=== PATIENT | male | born 1940 | race Hispanic/Latino ===

== ENCOUNTER 2017-03-11 14:03 | Inpatient (IN) | payer MEDICARE ==
--- NOTE | 2017-03-11 14:19 | ED PDOC ---
Arrival/HPI - General Chief Complaint: Weakness/Neurological Deficit Time Seen by Provider: 03/11/17 14:08 Historian: Patient - History of Present Illness Narrative History of Present Illness (Text): 03/11/17 14:16 76 year old male whose past medical history includes diabetes, hypertension, chronic lung disease, coronary artery disease, and DVT presents to the emergency department with shortness of breath and weakness after walking outside. He states he was walking outside in the heat for about 10 minutes when he began to feel weak and lightheaded. pt reports he felt sob, no longer on coumadin for dvt. Denies any pain, headache, or chest pain. 03/11/17 16:58 Time/Duration: Prior to Arrival Symptom Onset: Sudden Symptom Course: Unchanged Modifying Factors (Text): None Past Medical History - Provider Review Nursing Documentation Reviewed: Yes - Infectious Disease Hx of Infectious Diseases: None - Cardiac Hx Hypertension: Yes - Pulmonary Hx Respiratory Disorders: No - Neurological HX Cerebrovascular Accident: Yes - HEENT Hx HEENT Disorder: (WEARS RX GLASSES) - Renal Hx Renal Disorder: No - Endocrine/Metabolic Hx Diabetes Mellitus Type 1: Yes - Hematological/Oncological Hx Blood Disorders: No - Integumentary Hx Dermatological Disorder: No - Musculoskeletal/Rheumatological Hx Falls: No - Gastrointestinal Hx Gastrointestinal Disorders: Yes Hx Gastroesophageal Reflux: Yes - Genitourinary/Gynecological Hx Genitourinary Disorders: No - Psychiatric Hx Emotional Abuse: No Hx Physical Abuse: No Hx Substance Use: No - Surgical History Hx Cholecystectomy: Yes - Anesthesia Hx Anesthesia Reactions: No Hx Malignant Hyperthermia: No - Suicidal Assessment Feels Threatened In Home Enviroment: No Family/Social History - Physician Review Nursing Documentation Reviewed: Yes Family/Social History: Unknown Family HX Smoking Status: Never Smoked Hx Alcohol Use: No Hx Substance Use: No Allergies/Home Meds Allergies/Adverse Reactions: Allergies No Known Allergies Allergy (Verified 03/20/16 13:29) Home Medications: Home Meds Medication Instructions Recorded Confirmed Glyburide/Metformin HCl 2.5 - 500 mg PO QPM 09/03/13 03/11/17 [Glyburide-Metformin 2.5-500 mg] Omeprazole [Prilosec] 20 mg PO QPM 09/03/13 03/11/17 Simvastatin 40 mg PO QPM 10/08/13 03/11/17 Allopurinol [Zyloprim] 300 mg PO QPM 03/20/16 03/11/17 Aspirin [Ecotrin] 81 mg PO DAILY 03/20/16 03/11/17 Enalapril Maleate [Vasotec] 5 mg PO QPM 03/20/16 03/11/17 Prednisone [Prednisone] 5 mg PO DAILY 03/11/17 03/11/17 Review of Systems - Physician Review All systems were reviewed & negative as marked: Yes - Review of Systems Constitutional: Fatigue Respiratory: SOB Cardiovascular: absent: Chest Pain Gastrointestinal: absent: Abdominal Pain Neurological: Headache, Other (Lightheaded) Physical Exam Vital Signs Reviewed: Yes Vital Signs Temp Pulse Resp BP Pulse Ox 03/11/17 18:00 98.6 F 98 H 18 141/87 96 03/11/17 17:13 95 H 22 140/87 97 03/11/17 14:04 97.7 F 97 H 22 156/79 H 97 Temperature: Afebrile Blood Pressure: Normal Pulse: Regular Respiratory Rate: Normal Appearance: Positive for: Well-Appearing, Non-Toxic, Comfortable Pain Distress: None Mental Status: Positive for: Alert and Oriented X 3 Finger Stick Blood Glucose: 88 - Systems Exam Head: Present: Atraumatic, Normocephalic Pupils: Present: PERRL Extroacular Muscles: Present: EOMI Conjunctiva: Present: Normal Mouth: Present: Moist Mucous Membranes Neck: Present: Normal Range of Motion Respiratory/Chest: Present: Clear to Auscultation, Good Air Exchange. No: Respiratory Distress, Accessory Muscle Use Cardiovascular: Present: Regular Rate and Rhythm, Normal S1, S2. No: Murmurs Abdomen: Present: Normal Bowel Sounds. No: Tenderness, Distention, Peritoneal Signs Back: Present: Normal Inspection Upper Extremity: Present: Normal Inspection. No: Cyanosis, Edema Lower Extremity: Present: Normal Inspection. No: Edema Neurological: Present: GCS=15, CN II-XII Intact, Speech Normal Skin: Present: Warm, Dry, Normal Color. No: Rashes Psychiatric: Present: Alert, Oriented x 3, Normal Insight, Normal Concentration Medical Decision Making ED Course and Treatment: Impression: 76 year old male whose past medical history includes diabetes, hypertension, chronic lung disease, coronary artery disease, and DVT presents to the emergency department with shortness of breath and weakness after walking outside. Differential Diagnosis include but are not limited to: r/o intracrnail, metabolic, infectious, pe, etiology Plan: -- EKG, Chest X-ray -- Labs -- Reassess and disposition Prior Visits: Notes and results from previous visits were reviewed. Patient last seen in ED on 03/20/16 and admitted for DVT. Progress Notes: CT Head Stenographer Print Shop: Micheal Patino MD IMPRESSION: No acute findings. Chest X-ray Stenographer [employer]: Micheal Patino MD IMPRESSION: No active disease 03/11/17 16:58 dimer elevated, v/q added, given elevated cr (baseline). pt hemodynamically stable, o2 sat 97%, stable for tele. dr lee accepts VQ Scan Stenographer [employer] : Max Hoskins MD Report Date : 03/11/2017 16:53:02 FINDINGS: VENTILATION COMPONENT: Normal. PERFUSION COMPONENT: Large perfusion defects right upper lobe. Smaller perfusion defects left upper lobe. IMPRESSION: Highprobability ventilation perfusion scan for pulmonary embolism. - Lab Interpretations Lab Results: 03/11/17 14:20 03/11/17 14:20 Lab Results 03/11/17 14:50: Urine Color Yellow, Urine Appearance Clear, Urine pH 6.0, Ur Specific Thorp 1.020, Urine Protein 30 H, Urine Glucose (UA) Negative, Urine Ketones Negative, Urine Blood Trace-intact H, Urine Nitrate Negative, Urine Bilirubin Negative, Urine Urobilinogen 0.2, Ur Leukocyte Esterase Negative, Urine RBC 0 - 2, Urine WBC Negative, Hyaline Casts 0 - 2 03/11/17 14:20: D-Dimer, Quantitative 6.62 H 03/11/17 14:20: Sodium 143, Potassium 3.7, Chloride 107, Carbon Dioxide 24, Anion Gap 16, BUN 29 H, Creatinine 1.8 H, Est GFR ( Amer) 45, Est GFR ( Non-Af Amer) 37, Random Glucose 83, Calcium 9.4, Magnesium 1.6 L, Total Bilirubin 1.0, AST 55, ALT 64 H, Alkaline Phosphatase 54, Lactate Dehydrogenase 693, Total Creatine Kinase 99, Troponin I 0.01, NT-Pro-B Natriuret Pep 187, Total Protein 6.7, Albumin 4.0, Globulin 2.6, Albumin/Globulin Ratio 1.5 03/11/17 14:20: PT 11.6, INR 1.07, APTT 31.0 H 03/11/17 14:20: WBC 6.1, RBC 3.74, Hgb 12.4 L, Hct 37.0 L, MCV 98.9, MCH 33.2, MCHC 33.5, RDW 14.3, Plt Count 94 L, MPV 10.1, Gran % 59.2, Lymph % (Auto) 25.9 , Phelps % (Auto) 9.4 H, Eos % (Auto) 5.2 H, Baso % (Auto) 0.3, Gran # 3.63, Lymph # 1.6, Phelps # 0.6, Eos # 0.3, Baso # 0.02 03/11/17 14:10: POC Glucose (mg/dL) 88 - RAD Interpretation Radiology Orders: 03/11/17 14:14 CHEST PORTABLE [RAD] Stat 03/11/17 14:53 HEAD W/O CONTRAST [CT] Stat 03/11/17 15:29 LUNG PERF & VENT SCAN [NM] Stat - EKG Interpretation Interpreted by ED Physician: Yes (EKG shows NSR at 96 BPM, no ST/T wave changes) Type: 12 lead EKG - Medication Orders Current Medication Orders: Allopurinol (Zyloprim) 300 mg PO QPM [facility] Aspirin (Ecotrin) 81 mg PO DAILY [facility] Glyburide (Micronase) 2.5 mg PO BRK [facility] Last Admin: 03/12/17 08:53 Dose: 2.5 mg Heparin Sodium/Sodium Chloride (Heparin 16012 Units/250ml 1/2 Normal Saline) 25 ,000 units in 250 mls @ 16.084 mls/hr IV .[id number] PRN; Protocol; 18 UNITS/KG/HR PRN Reason: ADJUST RATE PER PROTOCOL Last Titration: 03/12/17 02:04 Dose: 15 units/kg/hr, 13.404 mls/hr Sodium Chloride (Sodium Chloride 0.9%) 1,000 mls @ 80 mls/hr IV .[id number] [facility] Last Admin: 03/12/17 06:06 Dose: 80 mls/hr Insulin Human Regular (Humulin R Low) 0 units SC ACHS [facility] PRN Reason: Protocol Last Admin: 03/12/17 07:53 Dose: Not Given Non-Admin Reason: Blood Sugar Parameter Lisinopril (Zestril) 5 mg PO DAILY [facility] Pantoprazole Sodium (Protonix Ec Tab) 20 mg PO 0600 [facility] Last Admin: 03/12/17 05:43 Dose: 20 mg Prednisone (Prednisone Tab) 5 mg PO DAILY [facility] Discontinued Medications Heparin Sodium (Porcine) (Heparin) 4,000 units IV ONCE ONE PRN Reason: Protocol Stop: 03/11/17 17:26 Last Admin: 03/11/17 17:37 Dose: 4,000 units - Scribe Statement The provider has reviewed the documentation as recorded by the Alysia Mcbride Provider Scribe Attestation: All medical record entries made by the Alysia were at my direction and personally dictated by me. I have reviewed the chart and agree that the record accurately reflects my personal performance of the history, physical exam, medical decision making, and the department course for this patient. I have also personally directed, reviewed, and agree with the discharge instructions and disposition. Disposition/Present on Arrival - Present on Arrival Any Indicators Present on Arrival: No History of DVT/PE: No History of Uncontrolled Diabetes: No Urinary Catheter: No History of Decub. Ulcer: No History Surgical Site Infection Following: None - Disposition Have Diagnosis and Disposition been Completed?: Yes Diagnosis: Pulmonary embolism Disposition: HOSPITALIZED Disposition Time: 16:59 Patient Problems: Current Active Problems Problem Status Onset Pulmonary embolism Acute Condition: FAIR
[2017-03-11 14:38] LABS: ALB/GLOB RATIO 1.5 (1.1-1.8); CALCIUM 9.4 mg/dL (8.4-10.5); MAGNESIUM 1.6 mg/dL (1.7-2.2)
[2017-03-11 14:41] LABS: INR 1.07 (0.93-1.08); PROTHROMBIN TIME 11.6 Seconds (9.9-11.8)
[2017-03-11 14:44] LABS: BASO # 0.02 K/mm3 (0.0-2.0); BASO % 0.3 % (0.0-3.0); EOS # 0.3 (0.0-0.7); EOS % 5.2 % (1.5-5.0); GRAN # 3.63 (1.4-6.5); GRAN % 59.2 % (50.0-68.0); HEMOGLOBIN 12.4 gm/dL (14.0-18.0); LYMPH # 1.6 (1.2-3.4); LYMPH % 25.9 % (22.0-35.0); MEAN CELL VOLUME 98.9 fL (80.0-105.0); MEAN CORPUSCULAR HEMOGLOBIN 33.2 pg (25.0-35.0); MEAN CORPUSCULAR HGB CONC 33.5 g/dl (31.0-37.0); MEAN PLATELET VOLUME 10.1 fl (7.0-11.0); MONO # 0.6 (0.1-0.6); MONO % 9.4 % (1.0-6.0); PLATELET COUNT 94 10^3/uL (120.0-450.0); RBC 3.74 10^6/uL (3.5-6.1); RED CELL DISTRIBUTION WIDTH 14.3 % (11.5-14.5); WHITE BLOOD COUNT 6.1 10^3/ul (4.5-11.0)
[2017-03-11 14:50] LABS: TROPONIN I 0.01 ng/mL
[2017-03-11 15:10] LABS: URINE BILIRUBIN NEGATIVE (NEGATIVE); URINE BLOOD TRACE-INTACT (NEGATIVE); URINE GLUCOSE (UA) NEGATIVE (NEGATIVE); URINE LEUKOCYTE ESTERASE NEGATIVE Leu/uL (NEGATIVE); URINE NITRATE NEGATIVE (NEGATIVE); URINE PROTEIN 30 mg/dL (<30 mg/dL); URINE UROBILINOGEN 0.2 E.U./dL (<1 E.U./dL)
[2017-03-11 15:11] LABS: URINE APPEARANCE CLEAR (CLEAR); URINE COLOR YELLOW (YELLOW)
[2017-03-11 15:13] LABS: URINE HYALINE CAST 0 - 2 /hpf; URINE RBC 0 - 2 /hpf (0-2); URINE WBC NEGATIVE /hpf (0-6)
--- NOTE | 2017-03-11 15:20 | CT ---
PROCEDURE: CT HEAD WITHOUT CONTRAST. HISTORY: near syncope COMPARISON: None available. TECHNIQUE: Axial computed tomography images were obtained through the head/brain without intravenous contrast. Radiation dose: Total exam DLP = 689 mGy-cm. This CT exam was performed using one or more of the following dose reduction techniques: Automated exposure control, adjustment of the mA and/or kV according to patient size, and/or use of iterative reconstruction technique. FINDINGS: HEMORRHAGE: No intracranial hemorrhage. BRAIN: No mass effect or edema. No atrophy or chronic microvascular ischemic changes. VENTRICLES: Unremarkable. No hydrocephalus. CALVARIUM: Unremarkable. PARANASAL SINUSES: There is partial opacification of the ethmoid air cells MASTOID AIR CELLS: Unremarkable as visualized. No inflammatory changes. OTHER FINDINGS: None. IMPRESSION: No acute findings
--- NOTE | 2017-03-11 15:22 | RAD ---
HISTORY: sob/weak COMPARISON: 03/23/2016 FINDINGS: LUNGS: No active pulmonary disease. PLEURA: No significant pleural effusion identified, no pneumothorax apparent. CARDIOVASCULAR: Normal. OSSEOUS STRUCTURES: No significant abnormalities. VISUALIZED UPPER ABDOMEN: Normal. OTHER FINDINGS: None. IMPRESSION: No active disease.
[2017-03-11] MEDS ORDERED: Heparin25000 units/250ml 1/2NS 25,000 UNITS/250 ML BAG IV PRN (16:51)
--- NOTE | 2017-03-11 16:54 | NM ---
COMPARISON: March 11, 2017. TECHNIQUE: 30.0 mCi technetium 99-m DTPA aerosol. 3.6 mCI technetium 99-m MAA administered intravenously. FINDINGS: VENTILATION COMPONENT: Normal. PERFUSION COMPONENT: Large perfusion defects right upper lobe. Smaller perfusion defects left upper lobe. IMPRESSION: Highprobability ventilation perfusion scan for pulmonary embolism. COMMUNICATION OF RESULTS Findings discussed with attending physician in the emergency department at the time of this interpretation. Study completed 16:24. Radiologist notified at 16:47.. Verbal results provided to Dr. Linares 16:52.. Results available in the electronic medical record 16:53 March 11, 2017. .
[2017-03-11 16:58] VITALS: BMI 27.4
[2017-03-11] MEDS: Heparin25000 units/250ml 1/2NS 25,000 UNITS/250 ML BAG IV PRN (17:38)
[2017-03-11] MEDS: Sodium Chloride 0.9% 1,000 ML IV SCH (18:19)
--- NOTE | 2017-03-11 19:58 | CARD ---
APPROVED REPORT EKG Measurement Heart [id number] <Conclusion> Normal sinus rhythm with sinus arrhythmia Inferior-posterior infarct, age undetermined Abnormal ECG
[2017-03-11] MEDS: Insulin Reg-LOW-Coverage SC SCH (21:42)
[2017-03-12] MEDS: Pantoprazole 20 mg EC Tab PO SCH (05:43)
[2017-03-12] MEDS: Sodium Chloride 0.9% 1,000 ML IV SCH ×2 (06:06→20:48)
[2017-03-12 07:36] LABS: BASO # 0.02 K/mm3 (0.0-2.0); BASO % 0.4 % (0.0-3.0); EOS # 0.5 (0.0-0.7); EOS % 8.5 % (1.5-5.0); GRAN # 3.04 (1.4-6.5); GRAN % 54.7 % (50.0-68.0); HEMOGLOBIN 11.9 gm/dL (14.0-18.0); LYMPH # 1.5 (1.2-3.4); LYMPH % 26.5 % (22.0-35.0); MEAN CELL VOLUME 99.5 fL (80.0-105.0); MEAN CORPUSCULAR HEMOGLOBIN 32.5 pg (25.0-35.0); MEAN CORPUSCULAR HGB CONC 32.7 g/dl (31.0-37.0); MEAN PLATELET VOLUME 10.4 fl (7.0-11.0); MONO # 0.6 (0.1-0.6); MONO % 9.9 % (1.0-6.0); PLATELET COUNT 82 10^3/uL (120.0-450.0); RBC 3.66 10^6/uL (3.5-6.1); RED CELL DISTRIBUTION WIDTH 14.5 % (11.5-14.5); WHITE BLOOD COUNT 5.6 10^3/ul (4.5-11.0)
[2017-03-12 07:48] LABS: ALB/GLOB RATIO 1.4 (1.1-1.8); ALBUMIN 3.5 g/dL (3.0-4.8); CALCIUM 8.7 mg/dL (8.4-10.5)
[2017-03-12] MEDS: Insulin Reg-LOW-Coverage SC SCH ×4 (07:53→22:06)
--- NOTE | 2017-03-12 08:11 | CP.PCM.PN ---
Subjective - Date & Time of Evaluation Date of Evaluation: 03/12/17 Time of Evaluation: 07:45 - Subjective Subjective: Patient seen this morning. He says he feels better. Objective - Vital Signs/Intake and Output Vital Signs (last 24 hours): Temp Pulse Resp BP Pulse Ox 97.8 F 68 20 115/72 98 03/12/17 05:51 03/12/17 05:51 03/12/17 05:51 03/12/17 05:51 03/12/17 05:51 Intake and Output: 03/12/17 03/12/17 06:59 18:59 Intake Total 800 Output Total 575 Balance 225 - Medications Medications: Current Medications Allopurinol (Zyloprim) 300 mg PO QPM [facility] Aspirin (Ecotrin) 81 mg PO DAILY [facility] Glyburide (Micronase) 2.5 mg PO BRK [facility] Heparin Sodium/Sodium Chloride (Heparin 48056 Units/250ml 1/2 Normal Saline) 25 ,000 units in 250 mls @ 16.084 mls/hr IV .[id number] PRN; Protocol; 18 UNITS/KG/HR PRN Reason: ADJUST RATE PER PROTOCOL Last Titration: 03/12/17 02:04 Dose: 15 units/kg/hr, 13.404 mls/hr Sodium Chloride (Sodium Chloride 0.9%) 1,000 mls @ 80 mls/hr IV .[id number] [facility] Last Admin: 03/12/17 06:06 Dose: 80 mls/hr Insulin Human Regular (Humulin R Low) 0 units SC ACHS [facility] PRN Reason: Protocol Last Admin: 03/12/17 07:53 Dose: Not Given Lisinopril (Zestril) 5 mg PO DAILY [facility] Pantoprazole Sodium (Protonix Ec Tab) 20 mg PO 0600 [facility] Last Admin: 03/12/17 05:43 Dose: 20 mg Prednisone (Prednisone Tab) 5 mg PO DAILY [facility] - Labs Labs: 03/12/17 07:30 PT 11.6 Seconds (9.9-11.8) 03/11/17 14:20 INR 1.07 (0.93-1.08) 03/11/17 14:20 APTT 99.8 Seconds (23.7-30.8) H* 03/12/17 00:20 - Constitutional Appears: No Acute Distress - Head Exam Head Exam: ATRAUMATIC, NORMOCEPHALIC - Respiratory Exam Respiratory Exam: Clear to Ausculation Bilateral, NORMAL BREATHING PATTERN - Cardiovascular Exam Cardiovascular Exam: +S1, +S2 - GI/Abdominal Exam GI & Abdominal Exam: Soft, Normal Bowel Sounds. absent: Tenderness - Neurological Exam Neurological Exam: Alert, Awake, Oriented x3 Assessment and Plan - Assessment and Plan (Free Text) Assessment: PE HTN HLP DMII Interstitial Lung disease H/O DVT H/O left endarterectomy Plan: Patient is currently on heparin drip. Will start coumadin. Pulmonary consult pending continue IVFs; creatinine 1.7; decreased from 1.8 check carotid doppler
[2017-03-13] MEDS: Pantoprazole 20 mg EC Tab PO SCH (05:20)
[2017-03-13 07:21] LABS: CALCIUM 8.6 mg/dL (8.4-10.5)
[2017-03-13] MEDS: Insulin Reg-LOW-Coverage SC SCH ×4 (08:07→21:12)
--- NOTE | 2017-03-13 09:07 | CP.PCM.PN ---
Subjective - Date & Time of Evaluation Date of Evaluation: 03/13/17 Time of Evaluation: 08:45 - Subjective Subjective: Patient is seen this morning. He has no complaints. Platelets decreased from 94 to 82. Objective - Vital Signs/Intake and Output Vital Signs (last 24 hours): Temp Pulse Resp BP Pulse Ox 97.8 F 70 20 126/66 96 03/13/17 05:38 03/13/17 05:38 03/13/17 05:38 03/13/17 05:38 03/13/17 05:38 Intake and Output: 03/13/17 03/13/17 06:59 18:59 Intake Total 1601 Output Total 525 Balance 1076 - Medications Medications: Current Medications Allopurinol (Zyloprim) 300 mg PO QPM [facility] Aspirin (Ecotrin) 81 mg PO DAILY [facility] Last Admin: 03/12/17 10:59 Dose: 81 mg Glyburide (Micronase) 2.5 mg PO BRK [facility] Last Admin: 03/13/17 08:35 Dose: 2.5 mg Heparin Sodium/Sodium Chloride (Heparin 73312 Units/250ml 1/2 Normal Saline) 25 ,000 units in 250 mls @ 16.084 mls/hr IV .[id number] PRN; Protocol; 18 UNITS/KG/HR PRN Reason: ADJUST RATE PER PROTOCOL Last Titration: 03/12/17 02:04 Dose: 15 units/kg/hr, 13.404 mls/hr Sodium Chloride (Sodium Chloride 0.9%) 1,000 mls @ 80 mls/hr IV .[id number] [facility] Last Admin: 03/12/17 20:48 Dose: 80 mls/hr Insulin Human Regular (Humulin R Low) 0 units SC ACHS [facility] PRN Reason: Protocol Last Admin: 03/13/17 08:07 Dose: Not Given Lisinopril (Zestril) 5 mg PO DAILY [facility] Last Admin: 03/12/17 11:08 Dose: 5 mg Pantoprazole Sodium (Protonix Ec Tab) 20 mg PO 0600 [facility] Last Admin: 03/13/17 05:20 Dose: Not Given Prednisone (Prednisone Tab) 5 mg PO DAILY [facility] Last Admin: 03/12/17 10:59 Dose: 5 mg - Labs Labs: 03/12/17 07:30 03/13/17 06:30 PT 11.6 Seconds (9.9-11.8) 03/11/17 14:20 INR 1.07 (0.93-1.08) 03/11/17 14:20 APTT 65.2 Seconds (23.7-30.8) H 03/13/17 06:30 - Constitutional Appears: No Acute Distress - Head Exam Head Exam: ATRAUMATIC, NORMOCEPHALIC - Respiratory Exam Respiratory Exam: Clear to Ausculation Bilateral, NORMAL BREATHING PATTERN - Cardiovascular Exam Cardiovascular Exam: +S1, +S2 - GI/Abdominal Exam GI & Abdominal Exam: Soft, Normal Bowel Sounds. absent: Tenderness - Neurological Exam Neurological Exam: Alert, Awake, Oriented x3 Assessment and Plan - Assessment and Plan (Free Text) Assessment: DVT/PE HTN DMII H/O DVT H/O left carotid endarterectomy Interstitial lung disease Plan: Patient is currently on heparin drip for DVT and PE treatment. Will start coumadin tonight. Platelets dropped from [address] Miranda, front office director, has been consulted. continue IVFs, creatinine decreased to 1.5 Patient is currently off metformin due to renal insufficiency. continue IVFs. continue glyburide and accuchecks with SS coverage awaiting results of carotid and lower extremity doppler check echocardiogram
[2017-03-13 09:48] LABS: BASO # 0.03 K/mm3 (0.0-2.0); BASO % 0.5 % (0.0-3.0); EOS # 0.4 (0.0-0.7); GRAN # 4.07 (1.4-6.5); GRAN % 61.5 % (50.0-68.0); HEMOGLOBIN 12.1 gm/dL (14.0-18.0); LYMPH # 1.5 (1.2-3.4); LYMPH % 22.8 % (22.0-35.0); MEAN CELL VOLUME 100.3 fL (80.0-105.0); MEAN CORPUSCULAR HEMOGLOBIN 32.8 pg (25.0-35.0); MEAN CORPUSCULAR HGB CONC 32.7 g/dl (31.0-37.0); MEAN PLATELET VOLUME 10.8 fl (7.0-11.0); MONO # 0.6 (0.1-0.6); MONO % 9.2 % (1.0-6.0); PLATELET COUNT 84 10^3/uL (120.0-450.0); RBC 3.69 10^6/uL (3.5-6.1); RED CELL DISTRIBUTION WIDTH 14.7 % (11.5-14.5); WHITE BLOOD COUNT 6.6 10^3/ul (4.5-11.0)
--- NOTE | 2017-03-13 10:20 | US ---
HISTORY: Leg pain and swelling. Evaluate for DVT PHYSICIAN(S): Kyler Narayan MD. TECHNIQUE: Duplex sonography and color-flow Doppler with graded compression were used to evaluate the deep venous systems of both lower extremities. The exam is limited by edema. FINDINGS: Acute occlusive thrombus is noted in the left femoral vein. Interestingly, the left popliteal vein is patent. The left common femoral vein is patent and compressible. There is no sonographic evidence for deep venous thrombosis in the visualized segments of the right lower extremity. IMPRESSION: Acute occlusive left femoral vein DVT
--- NOTE | 2017-03-13 10:23 | US ---
PROCEDURE: Bilateral carotid artery duplex ultrasound HISTORY: Carotid stenosis PHYSICIAN(S): Kyler Narayan MD. TECHNIQUE: Duplex sonography and color-flow Doppler were used to evaluate the carotid bifurcations and limited segments of the vertebral arteries bilaterally. FINDINGS: The exam is limited by body habitus and tortuous vessels. There is mild to moderate smooth heterogeneous plaque noted at the carotid bifurcations bilaterally. The peak systolic velocity in the proximal right internal carotid artery is 134 cm/sec. This corresponds to a 40-59 percent proximal right ICA stenosis. Normal systolic velocities are noted in the proximal right external carotid artery. There is antegrade flow in the right vertebral artery. The peak systolic velocity in the proximal left internal carotid artery is 65 cm/sec. This corresponds to a 20 to 39% proximal left ICA stenosis. Normal systolic velocities are noted in the proximal left external carotid artery. There is antegrade flow in the left vertebral artery. IMPRESSION: 1. 40-59 percent proximal right ICA stenosis. 2. 20-39 percent proximal left ICA stenosis. 3. Antegrade flow in both vertebral arteries.
[2017-03-13] MEDS: Heparin25000 units/250ml 1/2NS 25,000 UNITS/250 ML BAG IV PRN (12:01)
[2017-03-13] MEDS: Sodium Chloride 0.9% 1,000 ML IV SCH ×2 (12:36→20:31)
--- NOTE | 2017-03-14 00:20 | CP.PCM.CON ---
History of Present Illness - History of Present Illness History of Present Illness: Mr. Hopkins is a 76 year old male admitted with sudden shortness of breath. He had some shortness of breath for past few weeks. he had DVT in right leg last year. He was on coumadin for 6 months last year. VQ scan showed large right upper lobe and left upper lobe perfusion defect. He has occlusive left femoral DVT. he is on heparin drip. Thrombocytopenia with platelet count 94 k declined to 84 k now. Review of Systems - Constitutional Constitutional: Malaise, Weakness - EENT Eyes: absent: As Per HPI, Blind Spots, Blurred Vision, Change in Vision, Decreased Night Vision, Diplopia, Discharge, Dry Eye, Exophthalmos, Floaters, Irritation, Itchy Eyes, Loss of Peripheral Vision, Pain, Photophobia, Requires Corrective Lenses, Sees Flashes, Spots in Vision, Tunnel Vision, Other Visual Disturbances, Loss of Vision, Other Ears: absent: As Per HPI, Decreased Hearing, Ear Discharge, Ear Pain, Tinnitus, Abnormal Hearing, Disequilibrium, Dizziness, Other Nose/Mouth/Throat: absent: As Per HPI, Epistaxis, Nasal Congestion, Nasal Discharge, Nasal Obstruction, Nasal Trauma, Nose Pain, Post Nasal Drip, Sinus Pain, Sinus Pressure, Bleeding Gums, Change in Voice, Dental Pain, Dry Mouth, Dysphagia, Halitosis, Hoarsness, Lip Swelling, Mouth Lesions, Mouth Pain, Odynophagia, Sore Throat, Throat Swelling, Tongue Swelling, Facial Pain, Neck Pain, Neck Mass, Other - Cardiovascular Cardiovascular: absent: As Per HPI, Acrocyanosis, Chest Pain, Chest Pain at Rest , Chest Pain with Activity, Claudication, Diaphoresis, Dyspnea, Dyspnea on Exertion, Edema, Irregular Heart Rhythm, Pain Radiating to Arm/Neck/Jaw, Leg Edema, Leg Ulcers, Lightheadedness, Orthopnea, Palpitations, Paroxysmal Nocturnal Dyspnea, Pedal Edema, Radiating Pain, Rapid Heart Rate, Slow Heart Rate, Syncope, Other - Respiratory Respiratory: Dyspnea on Exertion - Gastrointestinal Gastrointestinal: absent: As Per HPI, Abdominal Pain, Belching, Bloating, Change in Bowel Habits, Change in Stool Character, Coffee Ground Emesis, Constipation, Cramping, Diarrhea, Dyspepsia, Dysphagia, Early Satiety, Excessive Flatus, Fecal Incontinence, Heartburn, Hematemesis, Hematochezia, Loose Stools, Melena, Nausea, Odynophagia, Temesmus, Vomiting, Other - Genitourinary Genitourinary: absent: As Per HPI, Change in Urinary Stream, Difficulty Urinating, Dysuria, Flank Pain, Hematuria, Pyuria, Nocturia, Urinary Incontinence, Urinary Frequency, Urinary Hesitance, Urinary Urgency, Voiding Freq/Small Amts, Freq UTI, Hx Renal/Bladder Calculi, Hx /Renal Surgery, Bladder Distension, Other - Musculoskeletal Musculoskeletal: Muscle Weakness - Integumentary Integumentary: absent: As Per HPI, Acne, Alopecia, Bleeding Lesions, Change in Hair, Change in Nails, Change in Pigmentation, Changing Lesions, Dry Skin, Erythema, Furuncle, Hirsutism, Lesions, New Lesions, Non-Healing Lesions, Photosensitivity, Pruritus, Rash, Skin Pain, Skin Ulcer, Sores, Striae, Swelling , Unusual Bruising, Wounds, Jaundice, Other - Neurological Neurological: absent: As Per HPI, Abnormal Gait, Abnormal Hearing, Abnormal Movements, Abnormal Speech, Behavioral Changes, Burning Sensations, Confusion, Convulsions, Disequilibrium, Dizziness, Numbness, Focal Weakness, Frequent Falls , Headaches, Lack of Coordination, Loss of Vision, Memory Loss, Paresthesias, Radicular Pain, Restless Legs, Sensory Deficit, Syncope, Tingling, Tremor, Vertigo, Weakness, Other Visual Disturbances, Other - Psychiatric Psychiatric: absent: As Per HPI, Abnormal Sleep Pattern, Anhedonia, Anxiety, Auditory Hallucinations, Behavioral Changes, Change in Appetite, Change in Libido, Confusion, Depression, Difficulty Concentrating, Hallucinations, Homicidal Ideation, Hopelessness, Irritability, Memory Loss, Mood Swings, Panic Attacks, Paranoia, Suicidal Ideation, Visual Hallucinations, Tactile Hallucinations, Other - Endocrine Endocrine: absent: As Per HPI, Change in Body Appearance, Change in Libido, Cold Intolorance, Deepening of Voice, Excessive Sweating, Fatigue, Flushing, Heat Intolorance, Increase in Ring/Shoe/Hat Size, Palpitations, Polydipsia, Polyphagia, Polyuria, Other - Hematologic/Lymphatic Hematologic: As Per HPI Past Patient History - Infectious Disease Hx of Infectious Diseases: None - Past Medical History & Family History Past Medical History?: Yes Past Family History: Reviewed and not pertinent - Past Social History Smoking Status: Never Smoked - CARDIAC Hx Hypertension: Yes - PULMONARY Hx Respiratory Disorders: No - NEUROLOGICAL HX Cerebrovascular Accident: Yes - HEENT Hx HEENT Problems: (WEARS RX GLASSES) - RENAL Hx Chronic Kidney Disease: No - ENDOCRINE/METABOLIC Hx Diabetes Mellitus Type 1: Yes - HEMATOLOGICAL/ONCOLOGICAL Hx Blood Disorders: No - INTEGUMENTARY Hx Dermatological Problems: No - MUSCULOSKELETAL/RHEUMATOLOGICAL Hx Falls: No - GASTROINTESTINAL Hx Gastrointestinal Disorders: Yes Hx Gastroesophageal Reflux: Yes - GENITOURINARY/GYNECOLOGICAL Hx Genitourinary Disorders: No - PSYCHIATRIC Hx Emotional Abuse: No Hx Physical Abuse: No Hx Substance Use: No - SURGICAL HISTORY Hx Cholecystectomy: Yes - ANESTHESIA Hx Anesthesia Reactions: No Hx Malignant Hyperthermia: No Meds Allergies/Adverse Reactions: Allergies Allergy/AdvReac Type Severity Reaction Status Date / Time No Known Allergies Allergy Verified 03/20/16 13:29 - Medications Medications: Current Medications Allopurinol (Zyloprim) 300 mg PO QPM [facility] Last Admin: 03/13/17 17:28 Dose: 300 mg Aspirin (Ecotrin) 81 mg PO DAILY [facility] Last Admin: 03/13/17 09:40 Dose: 81 mg Glyburide (Micronase) 2.5 mg PO BRK [facility] Last Admin: 03/13/17 08:35 Dose: 2.5 mg Heparin Sodium/Sodium Chloride (Heparin 30596 Units/250ml 1/2 Normal Saline) 25 ,000 units in 250 mls @ 16.084 mls/hr IV .[id number] PRN; Protocol; 18 UNITS/KG/HR PRN Reason: ADJUST RATE PER PROTOCOL Last Admin: 03/13/17 12:01 Dose: 15 units/kg/hr, 13.404 mls/hr Sodium Chloride (Sodium Chloride 0.9%) 1,000 mls @ 80 mls/hr IV .[id number] [facility] Last Admin: 03/13/17 20:31 Dose: 80 mls/hr Insulin Human Regular (Humulin R Low) 0 units SC ACHS [facility] PRN Reason: Protocol Last Admin: 03/13/17 21:12 Dose: Not Given Lisinopril (Zestril) 5 mg PO DAILY [facility] Last Admin: 03/13/17 09:41 Dose: 5 mg Pantoprazole Sodium (Protonix Ec Tab) 20 mg PO 0600 [facility] Last Admin: 03/13/17 05:20 Dose: Not Given Prednisone (Prednisone Tab) 5 mg PO DAILY [facility] Last Admin: 03/13/17 09:40 Dose: 5 mg Warfarin Sodium (Coumadin) 7.5 mg PO 1800 [facility] PRN Reason: Protocol Last Admin: 03/13/17 17:28 Dose: 7.5 mg Physical Exam - Constitutional Appears: Chronically Ill - Head Exam Head Exam: ATRAUMATIC, NORMAL INSPECTION, NORMOCEPHALIC - Eye Exam Eye Exam: absent: Conjunctival injection, EOMI, Normal appearance, Nystagmus, Periorbital swelling, Periorbital tenderness, PERRL, Scleral icterus Pupil Exam: absent: Fixed, Irregular, Miosis, Mydriatic, NORMAL ACCOMODATION, PERRL, Unequal - ENT Exam ENT Exam: absent: Mucous Membranes Dry, Mucous Membranes Moist, Normal Exam, Normal External Ear Exam, Normal Oropharynx, TM's Normal Bilaterally - Neck Exam Neck exam: Negative for: Full Rom, Lymphadenopathy, Meningismus, Normal Inspection, Tenderness, Thyromegaly - Respiratory Exam Respiratory Exam: Clear to Auscultation Bilateral, NORMAL BREATHING PATTERN - Cardiovascular Exam Cardiovascular Exam: REGULAR RHYTHM, +S1, +S2 - GI/Abdominal Exam GI & Abdominal Exam: Normal Bowel Sounds, Soft - Extremities Exam Extremities exam: Positive for: calf tenderness - Back Exam Back exam: NORMAL INSPECTION - Psychiatric Exam Psychiatric exam: Normal Affect, Normal Mood - Skin Skin Exam: Dry, Intact, Normal Color, Warm Results - Vital Signs Recent Vital Signs: Last Vital Signs Temp 98 F 03/13/17 18:00 Pulse 68 03/13/17 22:00 Resp 18 03/13/17 18:00 BP 147/82 03/13/17 18:00 Pulse Ox 96 03/13/17 05:38 - Labs Result Diagrams: 03/13/17 09:30 03/13/17 06:30 Labs: Laboratory Results - last 24 hr 03/13/17 03/13/17 03/13/17 06:30 06:30 07:27 WBC RBC Hgb Hct MCV MCH MCHC RDW Plt Count MPV Gran % Lymph % (Auto) Stone % (Auto) Eos % (Auto) Baso % (Auto) Gran # Lymph # Stone # Eos # Baso # APTT 65.2 H Sodium 140 Potassium 4.4 Chloride 109 H Carbon Dioxide 23 Anion Gap 12 BUN 23 H Creatinine 1.5 H Est GFR ( Amer) 55 Est GFR (Non-Af Amer) 46 POC Glucose (mg/dL) 105 Random Glucose 101 Calcium 8.6 03/13/17 03/13/17 03/13/17 09:30 11:51 20:50 WBC 6.6 RBC 3.69 Hgb 12.1 L Hct 37.0 L MCV 100.3 MCH 32.8 MCHC 32.7 RDW 14.7 H Plt Count 84 L MPV 10.8 Gran % 61.5 Lymph % (Auto) 22.8 Stone % (Auto) 9.2 H Eos % (Auto) 6.0 H Baso % (Auto) 0.5 Gran # 4.07 Lymph # 1.5 Stone # 0.6 Eos # 0.4 Baso # 0.03 APTT Sodium Potassium Chloride Carbon Dioxide Anion Gap BUN Creatinine Est GFR ( Amer) Est GFR (Non-Af Amer) POC Glucose (mg/dL) 149 H 148 H Random Glucose Calcium Assessment & Plan - Assessment and Plan (Free Text) Assessment: 1. B/L PE 2. left femoral DVT 3. Hypercoaguable state 4. Anemia 4. CV 5. Thrombocytopenia 6. CKD III Plan : He is on heparin drip with therapeutic PTT. Coumadin to be started today. To continue heparin drip until INR therapeutic. 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 Thrombophilia work up will be done in office. 2. Anemia : work up ordered- CBC, B12, iron studies. 3. Thrmobocytopenia : unlikely RUT. Will continue to monitor blood counts. If platelet count continue to decline, will consider switching to argatroban. 4. CV : hemodynamically stable. ECho to evaluate right heart pressures. 5. CKD : stable. Thank you Dr. Bradley for allowing us to participate in his care.
[2017-03-14] MEDS: Heparin25000 units/250ml 1/2NS 25,000 UNITS/250 ML BAG IV PRN ×2 (04:10→22:00)
[2017-03-14] MEDS: Pantoprazole 20 mg EC Tab PO SCH (05:16)
[2017-03-14 07:50] LABS: BASO # 0.02 K/mm3 (0.0-2.0); BASO % 0.3 % (0.0-3.0); EOS # 0.4 (0.0-0.7); EOS % 6.3 % (1.5-5.0); GRAN # 3.71 (1.4-6.5); GRAN % 60.4 % (50.0-68.0); HEMOGLOBIN 11.9 gm/dL (14.0-18.0); LYMPH # 1.4 (1.2-3.4); LYMPH % 22.9 % (22.0-35.0); MEAN CELL VOLUME 100.3 fL (80.0-105.0); MEAN CORPUSCULAR HEMOGLOBIN 32.6 pg (25.0-35.0); MEAN CORPUSCULAR HGB CONC 32.5 g/dl (31.0-37.0); MEAN PLATELET VOLUME 10.2 fl (7.0-11.0); MONO # 0.6 (0.1-0.6); MONO % 10.1 % (1.0-6.0); PLATELET COUNT 84 10^3/uL (120.0-450.0); RBC 3.65 10^6/uL (3.5-6.1); RED CELL DISTRIBUTION WIDTH 14.7 % (11.5-14.5); WHITE BLOOD COUNT 6.2 10^3/ul (4.5-11.0)
[2017-03-14 07:53] LABS: INR 1.13 (0.93-1.08); PROTHROMBIN TIME 12.2 Seconds (9.9-11.8)
[2017-03-14] MEDS: Insulin Reg-LOW-Coverage SC SCH ×4 (07:55→21:11)
--- NOTE | 2017-03-14 08:08 | CP.PCM.PN ---
Subjective - Date & Time of Evaluation Date of Evaluation: 03/14/17 Time of Evaluation: 07:45 - Subjective Subjective: Patient doing well. No new complaints. INR subtherapeutic. Objective - Vital Signs/Intake and Output Vital Signs (last 24 hours): Temp Pulse Resp BP Pulse Ox 97.8 F 63 20 142/76 95 03/14/17 06:00 03/14/17 06:00 03/14/17 06:00 03/14/17 06:00 03/14/17 06:00 Intake and Output: 03/14/17 03/14/17 06:59 18:59 Intake Total 1600 Output Total 1950 Balance -350 - Medications Medications: Current Medications Allopurinol (Zyloprim) 300 mg PO QPM [facility] Last Admin: 03/13/17 17:28 Dose: 300 mg Aspirin (Ecotrin) 81 mg PO DAILY [facility] Last Admin: 03/13/17 09:40 Dose: 81 mg Glyburide (Micronase) 2.5 mg PO BRK [facility] Last Admin: 03/13/17 08:35 Dose: 2.5 mg Heparin Sodium/Sodium Chloride (Heparin 78463 Units/250ml 1/2 Normal Saline) 25 ,000 units in 250 mls @ 16.084 mls/hr IV .[id number] PRN; Protocol; 18 UNITS/KG/HR PRN Reason: ADJUST RATE PER PROTOCOL Last Admin: 03/14/17 04:10 Dose: 15 units/kg/hr, 13.404 mls/hr Sodium Chloride (Sodium Chloride 0.9%) 1,000 mls @ 80 mls/hr IV .[id number] [facility] Last Admin: 03/13/17 20:31 Dose: 80 mls/hr Insulin Human Regular (Humulin R Low) 0 units SC ACHS [facility] PRN Reason: Protocol Last Admin: 03/13/17 21:12 Dose: Not Given Lisinopril (Zestril) 5 mg PO DAILY [facility] Last Admin: 03/13/17 09:41 Dose: 5 mg Pantoprazole Sodium (Protonix Ec Tab) 20 mg PO 0600 [facility] Last Admin: 03/14/17 05:16 Dose: Not Given Prednisone (Prednisone Tab) 5 mg PO DAILY [facility] Last Admin: 03/13/17 09:40 Dose: 5 mg Warfarin Sodium (Coumadin) 7.5 mg PO 1800 [facility] PRN Reason: Protocol Last Admin: 03/13/17 17:28 Dose: 7.5 mg - Labs Labs: 03/14/17 07:41 03/13/17 06:30 PT 12.2 Seconds (9.9-11.8) H 03/14/17 07:41 INR 1.13 (0.93-1.08) H 03/14/17 07:41 APTT 65.2 Seconds (23.7-30.8) H 03/13/17 06:30 - Constitutional Appears: No Acute Distress - Head Exam Head Exam: ATRAUMATIC, NORMOCEPHALIC - Respiratory Exam Respiratory Exam: Clear to Ausculation Bilateral, NORMAL BREATHING PATTERN - Cardiovascular Exam Cardiovascular Exam: +S1, +S2 - GI/Abdominal Exam GI & Abdominal Exam: Soft, Normal Bowel Sounds. absent: Tenderness - Neurological Exam Neurological Exam: Alert, Awake, Oriented x3 Assessment and Plan - Assessment and Plan (Free Text) Assessment: Pulmonary Embolism Left LE DVT Interstitial lung disease H/O Left carotid endarterectomy DMII Plan: Patient currently on Heparin drip and coumadin. INR subtherapeutic. Platelet count dropped but now stable at 84. Hematology consult appreciated. continue Heparin drip and coumadin will continue IVFs. Carotid doppler read. no further intervention necessary. Echocardiogram pending. TRCU evaluation
--- NOTE | 2017-03-14 08:10 | CP.PCM.HP ---
History of Present Illness - History of Present Illness History of Present Illness: 76 year old male with history of hypertension, hyperlipidemia, interstitial lung disease, DMII and previous history of DVT of the leg presented to the ER after almost passing out outside. Patient denies SOB, chest pain, nausea or vomiting. He says he was outside in the heat talking to a neighbor, when he walked back to his car, he felt like he was going to pass out. Patient's D-dimer and V/Q scan done in ER found to be abnormal. Present on Admission - Present on Admission Any Indicators Present on Admission: Yes History of DVT/PE: Yes Review of Systems - Cardiovascular Cardiovascular: absent: Chest Pain, Diaphoresis, Dyspnea - Respiratory Respiratory: absent: Cough, Dyspnea, Wheezing - Gastrointestinal Gastrointestinal: absent: Abdominal Pain, Diarrhea, Vomiting Past Patient History - Infectious Disease Hx of Infectious Diseases: None - Past Social History Smoking Status: Never Smoked - CARDIAC Hx Hypertension: Yes - PULMONARY Hx Respiratory Disorders: No - NEUROLOGICAL HX Cerebrovascular Accident: Yes - HEENT Hx HEENT Problems: (WEARS RX GLASSES) - RENAL Hx Chronic Kidney Disease: No - ENDOCRINE/METABOLIC Hx Diabetes Mellitus Type 1: Yes - HEMATOLOGICAL/ONCOLOGICAL Hx Blood Disorders: No - INTEGUMENTARY Hx Dermatological Problems: No - MUSCULOSKELETAL/RHEUMATOLOGICAL Hx Falls: No - GASTROINTESTINAL Hx Gastrointestinal Disorders: Yes Hx Gastroesophageal Reflux: Yes - GENITOURINARY/GYNECOLOGICAL Hx Genitourinary Disorders: No - PSYCHIATRIC Hx Emotional Abuse: No Hx Physical Abuse: No Hx Substance Use: No - SURGICAL HISTORY Hx Cholecystectomy: Yes - ANESTHESIA Hx Anesthesia Reactions: No Hx Malignant Hyperthermia: No Meds Allergies/Adverse Reactions: Allergies Allergy/AdvReac Type Severity Reaction Status Date / Time No Known Allergies Allergy Verified 03/20/16 13:29 Physical Exam - Constitutional Appears: No Acute Distress - Head Exam Head Exam: ATRAUMATIC, NORMOCEPHALIC - Respiratory Exam Respiratory Exam: NORMAL BREATHING PATTERN - Cardiovascular Exam Cardiovascular Exam: +S1, +S2 - GI/Abdominal Exam GI & Abdominal Exam: Normal Bowel Sounds, Soft - Neurological Exam Neurological exam: Alert, CN II-XII Intact, Oriented x3 Results - Vital Signs Recent Vital Signs: Last Vital Signs Temp 97.8 F 03/12/17 05:51 Pulse 68 03/12/17 05:51 Resp 20 03/12/17 05:51 BP 115/72 03/12/17 05:51 Pulse Ox 98 03/12/17 05:51 - Labs Result Diagrams: 03/11/17 14:20 03/12/17 07:30 Labs: Laboratory Results - last 24 hr 03/11/17 03/12/17 03/12/17 21:29 00:20 07:30 APTT 99.8 H* Sodium 140 Potassium 4.4 Chloride 109 H Carbon Dioxide 23 Anion Gap 12 BUN 27 H Creatinine 1.7 H Est GFR ( Amer) 48 Est GFR (Non-Af Amer) 39 POC Glucose (mg/dL) 104 Random Glucose 111 H Calcium 8.7 Total Bilirubin 1.0 AST 34 ALT 55 Alkaline Phosphatase 53 Total Protein 6.0 Albumin 3.5 Globulin 2.5 Albumin/Globulin Ratio 1.4 Assessment & Plan - Assessment and Plan (Free Text) Assessment: Pulmonary Embolism Near syncope HTN HLP DMII H/O left carotid endarterectomy H/O DVT Plan: Patient admitted for PE. On heparin drip. Consult pulmonary. CT Head negative start IV fluids hold metformin, continue glyburide - Date & Time Date: 03/11/17 Time: 19:35
[2017-03-14 08:14] LABS: CALCIUM 8.7 mg/dL (8.4-10.5)
[2017-03-14 08:20] LABS: % IRON SATURATION 27 % (20-55); IRON 67 ug/dL (45-180); TOTAL IRON BINDING CAPACITY 253 ug/dL (261-462)
[2017-03-14] MEDS: Sodium Chloride 0.9% 1,000 ML IV SCH ×2 (09:00→21:56)
[2017-03-14 12:58] LABS: FERRITIN 89.8 ng/mL
--- NOTE | 2017-03-14 16:02 | CARD ---
APPROVED REPORT EXAM: Two-dimensional and M-mode echocardiogram with Doppler and color Doppler. INDICATION HNT/DVT/PE 2D DIMENSIONS Left Atrium (2D)4.0 (1.6-4.0cm)IVSd1.1 (0.7-1.1cm) LVDd4.6 (3.9-5.9cm)PWd1.3 (0.7-1.1cm) LVDs2.9 (2.5-4.0cm)FS (%) 37.2 % LVEF (%)67.3 (>50%) M-Mode DIMENSIONS Aortic Root3.70 (2.2-3.7cm)Aortic Cusp Exc.2.00 (1.5-2.0cm) Aortic Valve AoV Peak Cbnuklge024.0cm/sAoV VTI36.0cmAO Peak GR.15mmHg LVOT Peak Fqraoypn004.0cm/sLVOT VTI26.90cmAO Mean GR.8mmHg AI P 1/2 [id number] Mitral Valve MV E Tusoutpr88.4cm/sMV A Vjximvrn279.0cm/sE/A ratio0.8 TDI Lateral E' Peak V8.09cm/sMedial E' Peak V7.70cm/sE/Lateral E'10.8 E/Medial E'11.4 Pulmonary Valve PV Peak Ubrgxksm86.1cm/sPV Peak Grad.2mmHg Tricuspid Valve TR Peak Stnokchd794ot/sRAP [id number] Peak Gr.63mmHg [id number] LEFT VENTRICLE The left ventricle is normal size. There is borderline concentric left ventricular hypertrophy. The left ventricular function is normal. The left ventricular ejection fraction is within the normal range. There is normal LV segmental wall motion. RIGHT VENTRICLE The right ventricle is normal size. The right ventricular systolic function is normal. ATRIA The left atrium is mildly dilated. The right atrium is mildly dilated. The interatrial septum is intact with no evidence for an atrial septal defect. AORTIC VALVE The aortic valve is mildly sclerotic. There is mild aortic regurgitation. There is no aortic valvular stenosis. MITRAL VALVE The mitral valve is normal in structure. There is no mitral valve regurgitation noted. TRICUSPID VALVE The tricuspid valve is normal in structure. There is moderate tricuspid regurgitation. There is severe pulmonary hypertension. PULMONIC VALVE The pulmonary valve is normal in structure. GREAT VESSELS The aortic root is normal in size. The IVC is normal in size and collapses >50% with inspiration. PERICARDIAL EFFUSION There is no pleural effusion. There is no pericardial effusion. <Conclusion> Biatrial enlargement. Borderline concentric LVH. Normal LV systolic function. Mild AI. Moderate TR. Severe pulmonary HTN with RVSP of 73 mm Hg recorded.
--- NOTE | 2017-03-14 23:15 | CP.PCM.PN ---
Subjective - Date & Time of Evaluation Date of Evaluation: 03/14/17 Time of Evaluation: 18:00 - Subjective Subjective: Feeling better. Shortness of breath improved. He walked in [address] without being short of breath. No leg pain. No chest pain, fever. Objective - Vital Signs/Intake and Output Vital Signs (last 24 hours): Temp Pulse Resp BP Pulse Ox 97.8 F 72 20 148/75 95 03/14/17 17:47 03/14/17 18:00 03/14/17 17:47 03/14/17 17:47 03/14/17 06:00 Intake and Output: 03/14/17 03/15/17 18:59 06:59 Intake Total 250 Balance 250 - Medications Medications: Current Medications Allopurinol (Zyloprim) 300 mg PO QPM [facility] Last Admin: 03/14/17 17:43 Dose: 300 mg Aspirin (Ecotrin) 81 mg PO DAILY [facility] Last Admin: 03/14/17 10:21 Dose: 81 mg Glyburide (Micronase) 2.5 mg PO BRK [facility] Last Admin: 03/14/17 08:21 Dose: 2.5 mg Heparin Sodium/Sodium Chloride (Heparin 34925 Units/250ml 1/2 Normal Saline) 25 ,000 units in 250 mls @ 16.084 mls/hr IV .[id number] PRN; Protocol; 18 UNITS/KG/HR PRN Reason: ADJUST RATE PER PROTOCOL Last Admin: 03/14/17 22:00 Dose: 13 units/kg/hr, 11.617 mls/hr Sodium Chloride (Sodium Chloride 0.9%) 1,000 mls @ 80 mls/hr IV .[id number] [facility] Last Admin: 03/14/17 21:56 Dose: 80 mls/hr Insulin Human Regular (Humulin R Low) 0 units SC ACHS [facility] PRN Reason: Protocol Last Admin: 03/14/17 21:11 Dose: Not Given Lisinopril (Zestril) 5 mg PO DAILY [facility] Last Admin: 03/14/17 10:21 Dose: 5 mg Pantoprazole Sodium (Protonix Ec Tab) 20 mg PO 0600 [facility] Last Admin: 03/14/17 05:16 Dose: Not Given Prednisone (Prednisone Tab) 5 mg PO DAILY [facility] Last Admin: 03/14/17 10:21 Dose: 5 mg Warfarin Sodium (Coumadin) 7.5 mg PO 1800 [facility] PRN Reason: Protocol Last Admin: 03/14/17 17:43 Dose: 7.5 mg - Labs Labs: 03/14/17 07:41 03/14/17 07:41 PT 12.2 Seconds (9.9-11.8) H 03/14/17 07:41 INR 1.13 (0.93-1.08) H 03/14/17 07:41 APTT 87.8 Seconds (23.7-30.8) H* 03/14/17 20:42 - Constitutional Appears: Well, Non-toxic - Head Exam Head Exam: ATRAUMATIC, NORMAL INSPECTION - Eye Exam Eye Exam: Normal appearance Pupil Exam: NORMAL ACCOMODATION - ENT Exam ENT Exam: Mucous Membranes Moist, Normal Exam - Neck Exam Neck Exam: Normal Inspection - Respiratory Exam Respiratory Exam: Clear to Ausculation Bilateral, NORMAL BREATHING PATTERN - Cardiovascular Exam Cardiovascular Exam: REGULAR RHYTHM, +S1, +S2 - GI/Abdominal Exam GI & Abdominal Exam: Soft, Normal Bowel Sounds - Rectal Exam Rectal Exam: NORMAL INSPECTION - Back Exam Back Exam: NORMAL INSPECTION - Neurological Exam Neurological Exam: Awake, CN II-XII Intact, Normal Gait, Oriented x3 - Psychiatric Exam Psychiatric exam: Normal Affect, Normal Mood - Skin Skin Exam: Dry, Intact, Normal Color Assessment and Plan - Assessment and Plan (Free Text) Assessment: Assessment: 1. B/L PE 2. left femoral DVT 3. Hypercoaguable state 4. Anemia 5. Thrombocytopenia 6. CKD III Plan : 1. heparin drip to continue. coumadin 10 mg daily. life long anticoagulation for recurrent DVT. , PE. 2. Anemia :iron studies normal. 3. Thrmobocytopenia : unlikely RUT. Plt count stable at 84 k, continue heparin drip. 4. CV : hemodynamically stable. ECho done today, report awaited. 5. CKD : stable. Thank you Dr. Bradley for allowing us to participate in his care.
[2017-03-15 03:56] LABS: BASO # 0.03 K/mm3 (0.0-2.0); BASO % 0.5 % (0.0-3.0); EOS # 0.4 (0.0-0.7); EOS % 7.5 % (1.5-5.0); GRAN % 56.4 % (50.0-68.0); HEMOGLOBIN 11.9 gm/dL (14.0-18.0); LYMPH # 1.5 (1.2-3.4); LYMPH % 26.9 % (22.0-35.0); MEAN CELL VOLUME 99.7 fL (80.0-105.0); MEAN CORPUSCULAR HEMOGLOBIN 32.6 pg (25.0-35.0); MEAN CORPUSCULAR HGB CONC 32.7 g/dl (31.0-37.0); MEAN PLATELET VOLUME 10.2 fl (7.0-11.0); MONO # 0.5 (0.1-0.6); MONO % 8.7 % (1.0-6.0); PLATELET COUNT 87 10^3/uL (120.0-450.0); RBC 3.65 10^6/uL (3.5-6.1); RED CELL DISTRIBUTION WIDTH 14.7 % (11.5-14.5); WHITE BLOOD COUNT 5.5 10^3/ul (4.5-11.0)
[2017-03-15 04:16] LABS: INR 1.76 (0.93-1.08)
[2017-03-15 04:18] LABS: PARTIAL THROMBOPLASTIN TIME 85.6 Seconds (23.7-30.8)
[2017-03-15 04:33] LABS: CALCIUM 8.8 mg/dL (8.4-10.5)
[2017-03-15] MEDS: Pantoprazole 20 mg EC Tab PO SCH (05:44)
[2017-03-15 06:27] VITALS: O2SAT 97
[2017-03-15] MEDS: Insulin Reg-LOW-Coverage SC SCH ×3 (07:42→16:46)
--- NOTE | 2017-03-15 08:14 | CP.PCM.PN ---
Subjective - Date & Time of Evaluation Date of Evaluation: 03/15/17 Time of Evaluation: 07:45 - Subjective Subjective: Patient is seen this morning. He is doing well. Objective - Vital Signs/Intake and Output Vital Signs (last 24 hours): Temp Pulse Resp BP Pulse Ox 98.3 F 61 19 141/75 97 03/15/17 06:00 03/15/17 06:00 03/15/17 06:00 03/15/17 06:00 03/15/17 06:00 Intake and Output: 03/15/17 03/15/17 06:59 18:59 Intake Total 3580 Output Total 1601 Balance 1979 - Medications Medications: Current Medications Allopurinol (Zyloprim) 300 mg PO QPM [facility] Last Admin: 03/14/17 17:43 Dose: 300 mg Aspirin (Ecotrin) 81 mg PO DAILY [facility] Last Admin: 03/14/17 10:21 Dose: 81 mg Glyburide (Micronase) 2.5 mg PO BRK [facility] Last Admin: 03/14/17 08:21 Dose: 2.5 mg Heparin Sodium/Sodium Chloride (Heparin 68483 Units/250ml 1/2 Normal Saline) 25 ,000 units in 250 mls @ 16.084 mls/hr IV .[id number] PRN; Protocol; 18 UNITS/KG/HR PRN Reason: ADJUST RATE PER PROTOCOL Last Titration: 03/15/17 04:28 Dose: 11 units/kg/hr, 9.829 mls/hr Insulin Human Regular (Humulin R Low) 0 units SC ACHS [facility] PRN Reason: Protocol Last Admin: 03/15/17 07:42 Dose: Not Given Lisinopril (Zestril) 5 mg PO DAILY [facility] Last Admin: 03/14/17 10:21 Dose: 5 mg Pantoprazole Sodium (Protonix Ec Tab) 20 mg PO 0600 [facility] Last Admin: 03/15/17 05:44 Dose: 20 mg Prednisone (Prednisone Tab) 5 mg PO DAILY [facility] Last Admin: 03/14/17 10:21 Dose: 5 mg Warfarin Sodium (Coumadin) 5 mg PO 1800 [facility] PRN Reason: Protocol - Labs Labs: 03/15/17 03:40 03/15/17 03:40 PT 19.0 Seconds (9.9-11.8) H 03/15/17 03:40 INR 1.76 (0.93-1.08) H 03/15/17 03:40 APTT 85.6 Seconds (23.7-30.8) H* 03/15/17 03:40 - Constitutional Appears: No Acute Distress - Head Exam Head Exam: ATRAUMATIC, NORMOCEPHALIC - Respiratory Exam Respiratory Exam: Clear to Ausculation Bilateral, NORMAL BREATHING PATTERN - Cardiovascular Exam Cardiovascular Exam: +S1, +S2 - GI/Abdominal Exam GI & Abdominal Exam: Soft, Normal Bowel Sounds. absent: Tenderness - Neurological Exam Neurological Exam: Alert, Awake, Oriented x3 Assessment and Plan - Assessment and Plan (Free Text) Assessment: Bilateral PE L LE DVT DMII Interstitial Lung Disease Severe Pulmonary Hypertension CRI Plan: Patient's INR is subtherapeutic. continue Heparin drip and coumadin. Discontinue IVFs Echocardiogram shows LVH, severe pulmonary hypertension, and biatrial enlargement continue glyburide, accuchecks with sliding scale coverage for TRCU for management of coumadin and heparin drip
[2017-03-15 11:40] VITALS: RESP 18
[2017-03-15 17:29] VITALS: BP 137/74; PULSE 64; TEMP 98.5
== END 2017-03-15 18:02 | DRG 176 ==
LOC: ED 14:03 → ERH 16:59 → 2RSO 17:54
PROVIDERS: ADMIT Internal Medicine; ATTEND Internal Medicine
DX: I26.99 Other pulmonary embolism without acute cor pulmonale (principal); I82.412 Acute embolism and thrombosis of left femoral vein; J84.9 Interstitial pulmonary disease, unspecified; E11.22 Type 2 diabetes mellitus with diabetic chronic kidney disease; N18.3 Chronic kidney disease, stage 3 (moderate); I12.9 Hypertensive chronic kidney disease with stage 1 through stage 4 chronic kidney disease, or unspecified chronic kidney disease; I27.2 Other secondary pulmonary hypertension; D69.6 Thrombocytopenia, unspecified; E78.5 Hyperlipidemia, unspecified; I25.10 Atherosclerotic heart disease of native coronary artery without angina pectoris; K21.9 Gastro-esophageal reflux disease without esophagitis; D64.9 Anemia, unspecified; Z86.73 Personal history of transient ischemic attack (TIA), and cerebral infarction without residual deficits; Z79.82 Long term (current) use of aspirin

== ENCOUNTER 2017-03-15 18:06 | Inpatient (IN) | payer OTHER ==
[2017-03-15 18:17] VITALS: BMI 27.8
[2017-03-15] MEDS ORDERED: Heparin25000 units/250ml 1/2NS 25,000 UNITS/250 ML BAG IV PRN (18:26)
[2017-03-15] MEDS: Insulin Reg-LOW-Coverage SC SCH (21:50)
[2017-03-16] MEDS: Pantoprazole 20 mg EC Tab PO SCH (05:30)
[2017-03-16 07:07] LABS: BASO # 0.02 K/mm3 (0.0-2.0); BASO % 0.4 % (0.0-3.0); EOS # 0.4 (0.0-0.7); EOS % 8.1 % (1.5-5.0); GRAN # 2.79 (1.4-6.5); GRAN % 54.1 % (50.0-68.0); HEMOGLOBIN 12.8 gm/dL (14.0-18.0); LYMPH # 1.3 (1.2-3.4); MEAN CELL VOLUME 99.2 fL (80.0-105.0); MEAN CORPUSCULAR HEMOGLOBIN 32.9 pg (25.0-35.0); MEAN CORPUSCULAR HGB CONC 33.2 g/dl (31.0-37.0); MEAN PLATELET VOLUME 10.1 fl (7.0-11.0); MONO # 0.6 (0.1-0.6); MONO % 11.4 % (1.0-6.0); PLATELET COUNT 95 10^3/uL (120.0-450.0); RBC 3.89 10^6/uL (3.5-6.1); RED CELL DISTRIBUTION WIDTH 14.8 % (11.5-14.5); WHITE BLOOD COUNT 5.2 10^3/ul (4.5-11.0)
[2017-03-16 07:28] LABS: INR 3.06 (0.93-1.08); PARTIAL THROMBOPLASTIN TIME 68.3 Seconds (23.7-30.8); PROTHROMBIN TIME 33.1 Seconds (9.9-11.8)
[2017-03-16 07:37] LABS: CALCIUM 9.2 mg/dL (8.4-10.5)
--- NOTE | 2017-03-16 08:01 | CP.PCM.HP ---
History of Present Illness - History of Present Illness History of Present Illness: 76 year old male with history of DMII, Interstitial lung disease, Left carotid endarterectomy, and history of DVT was admitted to the acute medical floor for Pulmonary embolism and Left Lower Extremity Deep Vein Thrombosis. He is now admitted to the transitional care unit for management of coumadin nad heparin drip for DVT and PE. This morning, he has no complaints. Present on Admission - Present on Admission Any Indicators Present on Admission: Yes History of DVT/PE: Yes Review of Systems - Constitutional Constitutional: absent: Chills, Fever, Headache - Cardiovascular Cardiovascular: absent: Chest Pain, Diaphoresis, Dyspnea - Gastrointestinal Gastrointestinal: absent: Abdominal Pain, Constipation, Diarrhea Past Patient History - Infectious Disease Hx of Infectious Diseases: None - Past Medical History & Family History Past Medical History?: Yes - Past Social History Smoking Status: Never Smoked - CARDIAC Hx Hypertension: Yes - PULMONARY Hx Respiratory Disorders: No - NEUROLOGICAL HX Cerebrovascular Accident: Yes - HEENT Hx HEENT Problems: (WEARS RX GLASSES) - RENAL Hx Chronic Kidney Disease: No - ENDOCRINE/METABOLIC Hx Diabetes Mellitus Type 1: Yes - HEMATOLOGICAL/ONCOLOGICAL Hx Blood Disorders: No - INTEGUMENTARY Hx Dermatological Problems: No - MUSCULOSKELETAL/RHEUMATOLOGICAL Hx Falls: No - GASTROINTESTINAL Hx Gastrointestinal Disorders: Yes Hx Gastroesophageal Reflux: Yes - GENITOURINARY/GYNECOLOGICAL Hx Reproductive Disorders: No - PSYCHIATRIC Hx Emotional Abuse: No Hx Physical Abuse: No Hx Substance Use: No - SURGICAL HISTORY Hx Cholecystectomy: Yes - ANESTHESIA Hx Anesthesia Reactions: No Hx Malignant Hyperthermia: No Meds Allergies/Adverse Reactions: Allergies Allergy/AdvReac Type Severity Reaction Status Date / Time No Known Allergies Allergy Verified 03/20/16 13:29 Physical Exam - Constitutional Appears: No Acute Distress - Head Exam Head Exam: ATRAUMATIC, NORMOCEPHALIC - Respiratory Exam Respiratory Exam: Clear to Auscultation Bilateral, NORMAL BREATHING PATTERN - Cardiovascular Exam Cardiovascular Exam: +S1, +S2 - GI/Abdominal Exam GI & Abdominal Exam: Normal Bowel Sounds, Soft. absent: Tenderness Results - Labs Result Diagrams: 03/16/17 06:20 03/16/17 06:20 Labs: Laboratory Results - last 24 hr 03/16/17 03/16/17 03/16/17 06:20 06:20 06:20 WBC 5.2 RBC 3.89 Hgb 12.8 L Hct 38.6 L MCV 99.2 MCH 32.9 MCHC 33.2 RDW 14.8 H Plt Count 95 L MPV 10.1 Gran % 54.1 Lymph % (Auto) 26.0 [place] % (Auto) 11.4 H Eos % (Auto) 8.1 H Baso % (Auto) 0.4 Gran # 2.79 Lymph # 1.3 [place] # 0.6 Eos # 0.4 Baso # 0.02 PT 33.1 H* INR 3.06 H APTT 68.3 H Sodium 139 Potassium 4.5 Chloride 105 Carbon Dioxide 26 Anion Gap 13 BUN 27 H Creatinine 1.7 H Est GFR ( Amer) 48 Est GFR (Non-Af Amer) 39 Random Glucose 92 Calcium 9.2 Assessment & Plan - Assessment and Plan (Free Text) Assessment: Left DVT Pulmonary Embolism DMII Interstitial Lung Disease CRF Plan: INR is 3.06 this morning. We will hold coumadin tonight. continue heparin drip for one more day. continue glyburide, accuchecks with sliding scale coverage continue prednisone for interstitial lung disease
[2017-03-16] MEDS: Insulin Reg-LOW-Coverage SC SCH ×4 (08:14→21:34)
[2017-03-16 11:39] VITALS: O2SAT 98
[2017-03-16 16:28] VITALS: TEMP 97.4
[2017-03-16 16:30] VITALS: RESP 18
--- NOTE | 2017-03-17 00:04 | CP.PCM.CON ---
History of Present Illness - History of Present Illness History of Present Illness: Transferred to TCU from regular floor. He has DVT and B/L PE. On heparin drip . Able to ambulate. Oxygen saturation well maintained. He walked in hallway without being short of breath. Review of Systems - Constitutional Constitutional: As Per HPI - EENT Eyes: absent: As Per HPI, Blind Spots, Blurred Vision, Change in Vision, Decreased Night Vision, Diplopia, Discharge, Dry Eye, Exophthalmos, Floaters, Irritation, Itchy Eyes, Loss of Peripheral Vision, Pain, Photophobia, Requires Corrective Lenses, Sees Flashes, Spots in Vision, Tunnel Vision, Other Visual Disturbances, Loss of Vision, Other Ears: absent: As Per HPI, Decreased Hearing, Ear Discharge, Ear Pain, Tinnitus, Abnormal Hearing, Disequilibrium, Dizziness, Other Nose/Mouth/Throat: absent: As Per HPI, Epistaxis, Nasal Congestion, Nasal Discharge, Nasal Obstruction, Nasal Trauma, Nose Pain, Post Nasal Drip, Sinus Pain, Sinus Pressure, Bleeding Gums, Change in Voice, Dental Pain, Dry Mouth, Dysphagia, Halitosis, Hoarsness, Lip Swelling, Mouth Lesions, Mouth Pain, Odynophagia, Sore Throat, Throat Swelling, Tongue Swelling, Facial Pain, Neck Pain, Neck Mass, Other - Cardiovascular Cardiovascular: absent: As Per HPI, Acrocyanosis, Chest Pain, Chest Pain at Rest , Chest Pain with Activity, Claudication, Diaphoresis, Dyspnea, Dyspnea on Exertion, Edema, Irregular Heart Rhythm, Pain Radiating to Arm/Neck/Jaw, Leg Edema, Leg Ulcers, Lightheadedness, Orthopnea, Palpitations, Paroxysmal Nocturnal Dyspnea, Pedal Edema, Radiating Pain, Rapid Heart Rate, Slow Heart Rate, Syncope, Other - Respiratory Respiratory: Dyspnea on Exertion - Gastrointestinal Gastrointestinal: absent: As Per HPI, Abdominal Pain, Belching, Bloating, Change in Bowel Habits, Change in Stool Character, Coffee Ground Emesis, Constipation, Cramping, Diarrhea, Dyspepsia, Dysphagia, Early Satiety, Excessive Flatus, Fecal Incontinence, Heartburn, Hematemesis, Hematochezia, Loose Stools, Melena, Nausea, Odynophagia, Temesmus, Vomiting, Other - Musculoskeletal Musculoskeletal: absent: As Per HPI, Abnormal Gait, Arthralgias, Atrophy, Back Pain, Deformity, Joint Swelling, Limited Range of Motion, Loss of Height, Muscle Cramps, Muscle Weakness, Myalgias, Neck Pain, Numbness, Radiating Pain into Limb, Stiffness, Tingling, Other - Integumentary Integumentary: absent: As Per HPI, Acne, Alopecia, Bleeding Lesions, Change in Hair, Change in Nails, Change in Pigmentation, Changing Lesions, Dry Skin, Erythema, Furuncle, Hirsutism, Lesions, New Lesions, Non-Healing Lesions, Photosensitivity, Pruritus, Rash, Skin Pain, Skin Ulcer, Sores, Striae, Swelling , Unusual Bruising, Wounds, Jaundice, Other - Endocrine Endocrine: absent: As Per HPI, Change in Body Appearance, Change in Libido, Cold Intolorance, Deepening of Voice, Excessive Sweating, Fatigue, Flushing, Heat Intolorance, Increase in Ring/Shoe/Hat Size, Palpitations, Polydipsia, Polyphagia, Polyuria, Other - Hematologic/Lymphatic Hematologic: As Per HPI Past Patient History - Infectious Disease Hx of Infectious Diseases: None - Past Medical History & Family History Past Medical History?: Yes - Past Social History Smoking Status: Never Smoked - CARDIAC Hx Congestive Heart Failure: Yes - PULMONARY Hx Respiratory Disorders: No - NEUROLOGICAL HX Cerebrovascular Accident: Yes - HEENT Hx HEENT Problems: (WEARS RX GLASSES) - RENAL Hx Chronic Kidney Disease: No - ENDOCRINE/METABOLIC Hx Diabetes Mellitus Type 1: Yes - HEMATOLOGICAL/ONCOLOGICAL Hx Blood Disorders: No - INTEGUMENTARY Hx Dermatological Problems: No - MUSCULOSKELETAL/RHEUMATOLOGICAL Hx Falls: No - GASTROINTESTINAL Hx Gastrointestinal Disorders: Yes Hx Gastroesophageal Reflux: Yes - GENITOURINARY/GYNECOLOGICAL Hx Reproductive Disorders: No - PSYCHIATRIC Hx Emotional Abuse: No Hx Physical Abuse: No Hx Substance Use: No - SURGICAL HISTORY Hx Cholecystectomy: Yes - ANESTHESIA Hx Anesthesia Reactions: No Hx Malignant Hyperthermia: No Meds Allergies/Adverse Reactions: Allergies Allergy/AdvReac Type Severity Reaction Status Date / Time No Known Allergies Allergy Verified 03/20/16 13:29 - Medications Medications: Current Medications Allopurinol (Zyloprim) 300 mg PO QPM [facility] PRN Reason: Protocol Last Admin: 03/16/17 17:41 Dose: 300 mg Aspirin (Ecotrin) 81 mg PO 0800 [facility] PRN Reason: Protocol Last Admin: 03/16/17 08:14 Dose: 81 mg Glyburide (Micronase) 2.5 mg PO 0800 [facility] PRN Reason: Protocol Last Admin: 03/16/17 08:15 Dose: 2.5 mg Insulin Human Regular (Humulin R Low) 0 units SC ACHS [facility] PRN Reason: Protocol Last Admin: 03/16/17 21:34 Dose: Not Given Lisinopril (Zestril) 5 mg PO DAILY [facility] PRN Reason: Protocol Last Admin: 03/16/17 10:10 Dose: 5 mg Pantoprazole Sodium (Protonix Ec Tab) 20 mg PO 0600 [facility] PRN Reason: Protocol Last Admin: 03/16/17 05:30 Dose: 20 mg Prednisone (Prednisone Tab) 5 mg PO 0800 [facility] PRN Reason: Protocol Last Admin: 03/16/17 08:15 Dose: 5 mg Warfarin Sodium (Coumadin) 4 mg PO 1800 [facility] PRN Reason: Protocol Physical Exam - Constitutional Appears: Well, Non-toxic - Head Exam Head Exam: ATRAUMATIC, NORMAL INSPECTION, NORMOCEPHALIC - Eye Exam Eye Exam: Normal appearance Pupil Exam: NORMAL ACCOMODATION - ENT Exam ENT Exam: Mucous Membranes Moist, Normal Exam - Neck Exam Neck exam: Positive for: Normal Inspection - Cardiovascular Exam Cardiovascular Exam: REGULAR RHYTHM, +S1, +S2 - GI/Abdominal Exam GI & Abdominal Exam: Normal Bowel Sounds, Soft - Extremities Exam Extremities exam: Positive for: normal inspection - Back Exam Back exam: NORMAL INSPECTION - Psychiatric Exam Psychiatric exam: Normal Affect - Skin Skin Exam: Dry, Intact, Normal Color, Warm Results - Vital Signs Recent Vital Signs: Last Vital Signs Temp 97.4 F L 03/16/17 16:00 Pulse 72 03/16/17 16:00 Resp 18 03/16/17 16:00 BP 126/67 03/16/17 16:00 Pulse Ox 98 03/16/17 10:00 - Labs Result Diagrams: 03/16/17 06:20 03/16/17 06:20 Labs: Laboratory Results - last 24 hr 03/16/17 03/16/17 03/16/17 06:20 06:20 06:20 WBC 5.2 RBC 3.89 Hgb 12.8 L Hct 38.6 L MCV 99.2 MCH 32.9 MCHC 33.2 RDW 14.8 H Plt Count 95 L MPV 10.1 Gran % 54.1 Lymph % (Auto) 26.0 [place] % (Auto) 11.4 H Eos % (Auto) 8.1 H Baso % (Auto) 0.4 Gran # 2.79 Lymph # 1.3 [place] # 0.6 Eos # 0.4 Baso # 0.02 PT 33.1 H* INR 3.06 H APTT 68.3 H Sodium 139 Potassium 4.5 Chloride 105 Carbon Dioxide 26 Anion Gap 13 BUN 27 H Creatinine 1.7 H Est GFR ( Amer) 48 Est GFR (Non-Af Amer) 39 POC Glucose (mg/dL) Random Glucose 92 Calcium 9.2 03/16/17 11:29 WBC RBC Hgb Hct MCV MCH MCHC RDW Plt Count MPV Gran % Lymph % (Auto) [place] % (Auto) Eos % (Auto) Baso % (Auto) Gran # Lymph # [place] # Eos # Baso # PT INR APTT Sodium Potassium Chloride Carbon Dioxide Anion Gap BUN Creatinine Est GFR ( Amer) Est GFR (Non-Af Amer) POC Glucose (mg/dL) 117 H Random Glucose Calcium Assessment & Plan - Assessment and Plan (Free Text) Assessment: DVT, PE : on heparin drip, INR 3.0 . DC heparin drip. resume coumadin 4 mg daily tomorrow. . he is ambulating without any discomfort. Blood counts stable. CKD : BUN, creatinine stable. Thank you Dr. Bradley for allowing us to participate in his care. - Date & Time Date: 03/16/17 Time: 19:00
[2017-03-17] MEDS: Pantoprazole 20 mg EC Tab PO SCH (05:45)
[2017-03-17 07:13] LABS: INR 3.04 (0.93-1.08); PARTIAL THROMBOPLASTIN TIME 44.9 Seconds (23.7-30.8); PROTHROMBIN TIME 32.8 Seconds (9.9-11.8)
--- NOTE | 2017-03-17 08:25 | CP.PCM.PN ---
Subjective - Date & Time of Evaluation Date of Evaluation: 03/17/17 Time of Evaluation: 07:45 - Subjective Subjective: Patient is seen this morning in room 321 bed 1. He has no complaints. He denies SOB, chest pain or leg pain. Objective - Vital Signs/Intake and Output Vital Signs (last 24 hours): Temp Pulse Resp BP Pulse Ox 97.4 F L 72 18 126/67 98 03/16/17 16:00 03/16/17 16:00 03/16/17 16:00 03/16/17 16:00 03/16/17 10:00 - Medications Medications: Current Medications Allopurinol (Zyloprim) 300 mg PO QPM [facility] PRN Reason: Protocol Last Admin: 03/16/17 17:41 Dose: 300 mg Aspirin (Ecotrin) 81 mg PO 0800 [facility] PRN Reason: Protocol Last Admin: 03/16/17 08:14 Dose: 81 mg Glyburide (Micronase) 2.5 mg PO 0800 [facility] PRN Reason: Protocol Last Admin: 03/16/17 08:15 Dose: 2.5 mg Insulin Human Regular (Humulin R Low) 0 units SC ACHS [facility] PRN Reason: Protocol Last Admin: 03/16/17 21:34 Dose: Not Given Lisinopril (Zestril) 5 mg PO DAILY [facility] PRN Reason: Protocol Last Admin: 03/16/17 10:10 Dose: 5 mg Pantoprazole Sodium (Protonix Ec Tab) 20 mg PO 0600 [facility] PRN Reason: Protocol Last Admin: 03/17/17 05:45 Dose: 20 mg Prednisone (Prednisone Tab) 5 mg PO 0800 [facility] PRN Reason: Protocol Last Admin: 03/16/17 08:15 Dose: 5 mg Warfarin Sodium (Coumadin) 4 mg PO 1800 [facility] PRN Reason: Protocol - Labs Labs: 03/16/17 06:20 03/16/17 06:20 PT 32.8 Seconds (9.9-11.8) H* 03/17/17 06:20 INR 3.04 (0.93-1.08) H 03/17/17 06:20 APTT 44.9 Seconds (23.7-30.8) H 03/17/17 06:20 - Constitutional Appears: No Acute Distress - Head Exam Head Exam: ATRAUMATIC, NORMOCEPHALIC - Respiratory Exam Respiratory Exam: Clear to Ausculation Bilateral, NORMAL BREATHING PATTERN - Cardiovascular Exam Cardiovascular Exam: +S1, +S2 - GI/Abdominal Exam GI & Abdominal Exam: Soft, Normal Bowel Sounds. absent: Tenderness - Neurological Exam Neurological Exam: Alert, Awake, Oriented x3 Assessment and Plan - Assessment and Plan (Free Text) Assessment: Pulmonary Embolism L LE DVT Interstitial Lung Disease Severe pulmonary hypertension DMII CKD Plan: Patient's INR is therapeutic. Off heparin drip. Will discharge home on coumadin. Patient is given a script for coumadin. He will continue his other medications and followup in the office on Tuesday.
[2017-03-17] MEDS: Insulin Reg-LOW-Coverage SC SCH (08:27)
[2017-03-17 09:31] VITALS: BP 142/72; PULSE 60
--- NOTE | 2017-03-31 09:01 | DS ---
HISTORY OF PRESENT ILLNESS: This is a 76-year-old male with history of type-2 diabetes, interstitial lung disease, left carotid endarterectomy and history of DVT who was admitted to the acute medical floor for pulmonary embolism and left lower extremity deep vein thrombosis. He was then admitted to the transitional care unit for the management of Coumadin and heparin for DVT and PE. Once the patient was brought to the transitional care unit, his INR was found to be 3.06. He was continued on heparin drip for 24 more hours. Coumadin was held that evening; however, the heparin drip was discontinued by Oncology. The patient was then discharged the next morning and given a prescription for his Coumadin. DISCHARGE DIAGNOSES: Pulmonary embolism, left femoral vein deep venous thrombosis, hypertension, type-2 diabetes, hypothyroidism, severe pulmonary hypertension and interstitial lung disease. DISCHARGE MEDICATIONS: Coumadin 5 mg at 6 p.m. daily, aspirin 81 mg daily, glyburide/metformin 2.5/500 mg once a day, prednisone 5 mg once a day, Prilosec 20 mg daily, Protonix 20 mg daily, simvastatin 40 mg once a day, Vasotec 5 mg once a day and allopurinol 300 mg once a day. FOLLOWUP: Patient will followup in the office in 4 days for repeat PT/INR Tomasz Jimenez MD MTDD
== END 2017-03-17 11:27 | disposition home or self-care (01) | DRG 176 ==
LOC: TRCU 18:06
PROVIDERS: ADMIT Internal Medicine; ATTEND Internal Medicine
PROC: F07Z9ZZ Gait Training/Functional Ambulation Treatment (ICD-10-PCS; principal; 2017-03-16)
PROC: F08Z4ZZ Home Management Treatment (ICD-10-PCS; 2017-03-16)
DX: I26.99 Other pulmonary embolism without acute cor pulmonale (principal); I82.412 Acute embolism and thrombosis of left femoral vein; Z79.01 Long term (current) use of anticoagulants; J84.9 Interstitial pulmonary disease, unspecified; D69.6 Thrombocytopenia, unspecified; I27.2 Other secondary pulmonary hypertension; E11.22 Type 2 diabetes mellitus with diabetic chronic kidney disease; N18.9 Chronic kidney disease, unspecified; E78.5 Hyperlipidemia, unspecified; D64.9 Anemia, unspecified; K21.9 Gastro-esophageal reflux disease without esophagitis; Z86.718 Personal history of other venous thrombosis and embolism; Z90.49 Acquired absence of other specified parts of digestive tract

== ENCOUNTER 2018-09-15 09:06 | Emergency (ER) | payer MEDICARE ==
[2018-09-15 09:06] VITALS: BMI 27.8
[2018-09-15 09:16] VITALS: RESP 18
[2018-09-15] MEDS ORDERED: Lidocaine 1% Inj (20ml) IJ STA (09:18)
[2018-09-15] MEDS ORDERED: Bacitracin 500 Units/gm Oint Foilpak UD TOP ONE (09:18)
[2018-09-15] MEDS ORDERED: TDAP Vaccine 0.5 mL Syr IM ONE (09:22)
--- NOTE | 2018-09-15 09:33 | ED PDOC ---
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 Pt was moving boxes out of his house when he tripped and fell, landing on outstretched hands. Denies head strike or LOC. Currently c/o left hand pain and lacerations to volar 4th/5th digits. Denies headache, dizziness, vision changes, N/V, neck pain, abdominal pain, back pain, chest pain, SOB, numbness, weakness, parethesias, or any other associated complaints. Past Medical History - Provider Review Nursing Documentation Reviewed: Yes - Infectious Disease Hx of Infectious Diseases: None - Cardiac Hx Congestive Heart Failure: Yes - Pulmonary Hx Respiratory Disorders: No - Neurological HX Cerebrovascular Accident: Yes - HEENT Hx HEENT Disorder: (WEARS RX GLASSES) - Renal Hx Renal Disorder: No - Endocrine/Metabolic Hx Diabetes Mellitus Type 2: Yes - Hematological/Oncological Hx Blood Disorders: No - Integumentary Hx Dermatological Disorder: No - Musculoskeletal/Rheumatological Hx Falls: No - Gastrointestinal Hx Gastrointestinal Disorders: Yes Hx Gastroesophageal Reflux: Yes - Genitourinary/Gynecological Hx Reproductive Disorders: No - Psychiatric Hx Emotional Abuse: No Hx Physical Abuse: No Hx Substance Use: No - Surgical History Hx Cholecystectomy: Yes - Anesthesia Hx Anesthesia Reactions: No Hx Malignant Hyperthermia: No - Suicidal Assessment Feels Threatened In Home Enviroment: No Family/Social History - Physician Review Nursing Documentation Reviewed: Yes Family/Social History: No Known Family HX Smoking Status: Never Smoked Hx Alcohol Use: No Hx Substance Use: No Allergies/Home Meds Allergies/Adverse Reactions: Allergies No Known Allergies Allergy (Verified 09/15/18 09:16) Home Medications: Home Meds Medication Instructions Recorded Confirmed Glyburide/Metformin HCl 2.5 - 500 mg PO QPM 09/03/13 09/15/18 [Glyburide-Metformin 2.5-500 mg] Simvastatin 40 mg PO QPM 10/08/13 09/15/18 Allopurinol [Zyloprim] 300 mg PO QPM 03/20/16 09/15/18 Aspirin [Ecotrin] 81 mg PO DAILY 03/20/16 09/15/18 Review of Systems - Physician Review All systems were reviewed & negative as marked: Yes - Review of Systems Constitutional: Normal. absent: Fatigue, Fevers Eyes: Normal. absent: Vision Changes ENT: Normal. absent: Sinus Congestion Respiratory: Normal. absent: SOB, Cough Cardiovascular: Normal. absent: Chest Pain, Palpitations Gastrointestinal: Normal. absent: Abdominal Pain, Nausea, Vomiting, Appetite Changes Genitourinary Male: Normal Musculoskeletal: Arthralgias (left hand 4th/5th digits), Other (deformity left hand 4th/5th digits). absent: Back Pain Skin: Laceration Neurological: Normal. absent: Headache, Dizziness, Focal Weakness, Gait Changes, Speech Changes, Facial Droop, Disequilibrium Endocrine: Normal Hemo/Lymphatic: Normal Psychiatric: Normal Physical Exam Vital Signs Reviewed: Yes Vital Signs Temp Pulse Resp BP Pulse Ox 09/15/18 09:11 98.1 F 91 H 18 136/83 97 Temperature: Afebrile Blood Pressure: Normal Pulse: Regular Respiratory Rate: Normal Appearance: Positive for: Well-Appearing, Non-Toxic, Comfortable Pain Distress: None Mental Status: Positive for: Alert and Oriented X 3 - Systems Exam Head: Present: Atraumatic, Normocephalic. No: Tenderness, Contusion, Swelling, Abrasion Pupils: Present: PERRL Extroacular Muscles: Present: EOMI Conjunctiva: Present: Normal Mouth: Present: Moist Mucous Membranes Nose (External): Present: Atraumatic Nose (Internal): Present: Normal Inspection, No Active Bleeding Neck: Present: Normal Range of Motion. No: MIDLINE TENDERNESS, Paraspinal Tenderness Respiratory/Chest: Present: Clear to Auscultation Cardiovascular: Present: Regular Rate and Rhythm, Normal S1, S2 Abdomen: Present: Normal Bowel Sounds. No: Tenderness, Distention, Peritoneal Signs Upper Extremity: Present: NORMAL PULSES, Tenderness (over lacerations), Neurovascularly Intact, Capillary Refill < 2s, Deformity (left hand 4th and 5th digits), Other (bruising to dorsal aspect of hand, chronic). No: Normal ROM (unable to fully extend 4th and 5th digits left hand), Temperature Abnormalties Lower Extremity: Present: Normal Inspection, NORMAL PULSES, Normal ROM, Capillary Refill < 2 s. No: Tenderness, Swelling Neurological: Present: GCS=15, CN II-XII Intact, Speech Normal, Motor Func Grossly Intact, Normal Sensory Function, Gait Normal Skin: Present: Warm, Dry, Normal Color, Laceration (two 1 cm lacerations left hand, proximal volar 4th and 5th digits; tendon exposed in both lacerations; no active bleeding). No: Rashes Psychiatric: Present: Alert, Oriented x 3, Normal Insight, Normal Concentration, Normal Affect, Normal Mood Medical Decision Making ED Course and Treatment: 09:36 Initial Plan: * Head CT * Cervical Spine CT * Left Hand XR * Coags * Wound cleaning * Tdap 10:20 Wound cleaned and irrigated by nail tech. Hand XR shows angulate, comminuted fracture of 4th proximal phalanx, and complete dislocation of 5th digit PIP joint. Spoke with orthopedics vocational education teacher, Dr. Lim, who states he does not specialize in hand injuries. 10:[address] Bianca Zaidi, hand specialist, who reviewed diagnostic studies and will have surgical residents evaluate patient at bedside. INR 2.[address] negative for any acute abnormalities. 11:10 Call placed to assistant professor surgical technology. Will get pre-op EKG, labs, and CXR. 11:30 Second call placed to assistant professor surgical technology. 12:00 Spoke with assistant professor surgical technology Dr. Carmen, who will come with team to evaluate and treat patient at bedside under direction of Dr. Zaidi. 13:00 Surgical residents evaluated patient at bedside, sutured wounds (7 sutures, 4-0 prolene) and attempted to reduce dislocation, per Dr. Zaidi. Post reduction films ordered. [See procedure note by Dr. Carmen and consult note by Dr. Sigala] Patient tolerated procedure well. 14:00 Reduction of 5th digit PIP unsuccessful, 2nd attempt to be made by surgical residents. Patient again tolerated procedure well. Given food in ED. 15:45 2nd attempt at reduction unsuccessful. Surgical residents and Dr. Zaidi recommend admission to PMD service with consult to Dr. Zaidi for surgery tomorrow. 16:15 Spoke with patient's PMD Dr. Jimenez, who desires consultation with Dr. Michelle, orthopedics, before patient is to be admitted. 16:[address] Michelle, who will come to ED to evaluate patient per PMD request. He reviewed Xrays and is aware of Dr. Zaidi, hand specialist, recommendation of surgery. 17:[address] Dr. Jimenez evaluated patient at bedside. Shared decision making with patient resulted in decision for outpatient management with followup with Dr. Michelle and Dr. Jimenez. Dislocation reduced bedside by Dr. Michelle, states he does not want post-reduction films. Patient has full ROM and sensation. Wound redressed and splint reapplied by Dr. Michelle. Patient will followup in the office Tuesday. Advised to give Augmentin [address] Zaidi and resident team made aware of change in disposition. Diagnostic testing results and plan of care discussed with patient. Strict instructions given regarding proper wound care, prescription use, importance of followup, and signs/symptoms to return to ER including wound redness, tenderness, drainage, bleeding, or any other new/worsening symptoms. Pt verbalized understanding of discussion. Patient is A&Ox3, ambulating with steady gait, with vital signs stable for discharge. - Lab Interpretations Lab Results: Lab Results 09/15/18 09:30: PT 24.1 H, INR 2.06, APTT 31.3 I have reviewed the lab results: Yes Interpretation: All labs normal - RAD Interpretation Narrative RAD Interpretations (Text): 09/15/18 10:12 Left Hand XR: Comminuted angulated fracture through the base of the 4th proximal phalanx. Complete dislocation of 5th digit PIP joint. 1st Post Reduction Film: Improvement of alignment of 4th digit fracture, persistent dislocation of 5th PIP joint 2nd Post Reduction Film: Persistent dislocation of 5th PIP joint CT Head FINDINGS: HEMORRHAGE: No intracranial hemorrhage. BRAIN: No mass effect or edema. No atrophy or chronic microvascular ischemic changes. VENTRICLES: Unremarkable. No hydrocephalus. CALVARIUM: Unremarkable. PARANASAL SINUSES: There is partial opacification of the ethmoid sinuses MASTOID AIR CELLS: Unremarkable as visualized. No inflammatory changes. OTHER FINDINGS: None. IMPRESSION: No acute intracranial findings CT Cervical Spine FINDINGS: VERTEBRAE: No fracture. Normal alignment. No destructive bony lesion. DISCS/SPINAL CANAL/NEURAL FORAMINA: There is a broad-based large central protrusion at C3-4. This produces a moderate degree of stenosis. There is severe disc degeneration at C4-5 with loss of disc height and disc bulging. There is an osteophytic ridge. There is mild foraminal stenosis. The C5-6 level is unremarkable. At C6-7 there is a disc bulge and small central protrusion. PARASPINAL SOFT TISSUES: Unremarkable. OTHER FINDINGS: None. IMPRESSION: Multilevel disc degeneration and disc protrusions as described above. No acute findings CXR: No active disease Radiology Orders: 09/15/18 09:17 HAND LEFT 3 VIEWS ROUTINE [RAD] Stat 09/15/18 09:18 CERVICAL SPINE W/O CONTRAST [CT] Stat HEAD W/O CONTRAST [CT] Stat Customer Consultant: Radiologist - EKG Interpretation EKG Interpretation (Text): Rate 78; NSR; normal intervals; No STEMI; nonspecific ST segment/T wave changes Interpreted by ED Physician: Yes Type: 12 lead EKG Comparison: Similar to previous EKG (03/11/2017) - Medication Orders Current Medication Orders: Discontinued Medications Bacitracin (Bacitracin) 1 ea TOP ONCE ONE Stop: 09/15/18 09:19 Lidocaine HCl (Lidocaine 1% (20ml)) 20 ml IJ STAT STA Stop: 09/15/18 09:19 Tetanus/Reduced Diphtheria/Acell Pertussis (Boostrix Vaccine Inj) 0.5 ml IM .ONCE ONE Stop: 09/15/18 09:23 Disposition/Present on Arrival - Present on Arrival Any Indicators Present on Arrival: Yes History of DVT/PE: Yes History of Uncontrolled Diabetes: No Urinary Catheter: No History of Decub. Ulcer: No History Surgical Site Infection Following: None - Disposition Have Diagnosis and Disposition been Completed?: Yes Diagnosis: Laceration, Fall, Dislocation of finger, open, Fracture, finger, open Disposition: HOME/ ROUTINE Disposition Time: 17:00 Patient Plan: Discharge Condition: IMPROVED Discharge Instructions (ExitCare): Finger Fracture, Wound Care (DC), Laceration Repair With Stitches (DC) Additional Instructions: 2 weeks of Augmentin Follow up w/ Dr. Michelle on Tuesday Follow up with primary care doctor within 2 days Splint to stay ON and DRY till visit w/ Dr. Michelle Return to ER with any new/worsening symptoms Prescriptions: Amoxicillin/Clavulanate [Augmentin 875 MG-125 MG] 1 tab PO Q12H #28 tab Referrals: Micheal Michelle DO [Staff Provider] - Follow up with primary Christine Jimenez MD [Primary Care Provider] - Follow up with primary Forms: [employer] (Danish)
[2018-09-15 09:59] LABS: INR 2.06; PARTIAL THROMBOPLASTIN TIME 31.3 Seconds (25.1-36.5); PROTHROMBIN TIME 24.1 SECONDS (9.4-12.5)
--- NOTE | 2018-09-15 10:07 | CT ---
Date of service: 09/15/2018 PROCEDURE: CT HEAD WITHOUT CONTRAST. HISTORY: headache COMPARISON: 03/11/2017 TECHNIQUE: Axial computed tomography images were obtained through the head/brain without intravenous contrast. Radiation dose: Total exam DLP = 991.73 mGy-cm. This CT exam was performed using one or more of the following dose reduction techniques: Automated exposure control, adjustment of the mA and/or kV according to patient size, and/or use of iterative reconstruction technique. FINDINGS: HEMORRHAGE: No intracranial hemorrhage. BRAIN: No mass effect or edema. No atrophy or chronic microvascular ischemic changes. VENTRICLES: Unremarkable. No hydrocephalus. CALVARIUM: Unremarkable. PARANASAL SINUSES: There is partial opacification of the ethmoid sinuses MASTOID AIR CELLS: Unremarkable as visualized. No inflammatory changes. OTHER FINDINGS: None. IMPRESSION: No acute intracranial findings
--- NOTE | 2018-09-15 10:19 | CT ---
Date of service: 09/15/2018 PROCEDURE: CT Cervical Spine without contrast HISTORY: neck pain COMPARISON: None available. TECHNIQUE: Axial computed tomography images were obtained of the cervical spine without the use of intravenous contrast. Coronal and sagittal reformatted images were created and reviewed. Radiation dose: Total exam DLP = 473.08 mGy-cm. This CT exam was performed using one or more of the following dose reduction techniques: Automated exposure control, adjustment of the mA and/or kV according to patient size, and/or use of iterative reconstruction technique. FINDINGS: VERTEBRAE: No fracture. Normal alignment. No destructive bony lesion. DISCS/SPINAL CANAL/NEURAL FORAMINA: There is a broad-based large central protrusion at C3-4. This produces a moderate degree of stenosis. There is severe disc degeneration at C4-5 with loss of disc height and disc bulging. There is an osteophytic ridge. There is mild foraminal stenosis. The C5-6 level is unremarkable. At C6-7 there is a disc bulge and small central protrusion. PARASPINAL SOFT TISSUES: Unremarkable. OTHER FINDINGS: None. IMPRESSION: Multilevel disc degeneration and disc protrusions as described above. No acute findings
[2018-09-15 11:34] LABS: BASO # 0.03 K/mm3 (0.0-2.0); BASO % 0.5 % (0.0-3.0); EOS # 0.4 (0.0-0.7); EOS % 5.9 % (1.5-5.0); GRAN # 3.42 (1.4-6.5); GRAN % 57.9 % (50.0-68.0); HEMOGLOBIN 12.1 g/dL (14.0-18.0); LYMPH # 1.5 (1.2-3.4); LYMPH % 25.5 % (22.0-35.0); MEAN CELL VOLUME 101.1 fl (80.0-105.0); MEAN CORPUSCULAR HEMOGLOBIN 32.7 pg (25.0-35.0); MEAN CORPUSCULAR HGB CONC 32.4 g/dl (31.0-37.0); MEAN PLATELET VOLUME 10.5 fl (7.0-11.0); MONO # 0.6 (0.1-0.6); MONO % 10.2 % (1.0-6.0); RBC 3.7 10^6/uL (3.5-6.1); WHITE BLOOD COUNT 5.9 10^3/uL (4.5-11.0)
[2018-09-15 11:50] LABS: ALB/GLOB RATIO 1.5 (1.1-1.8); ALBUMIN 4.3 g/dL (3.0-4.8); CALCIUM 9.3 mg/dL (8.4-10.5)
[2018-09-15] MEDS ORDERED: Bupivacaine 0.5% 50 ML IJ ONE (12:16)
[2018-09-15 12:17] VITALS: O2SAT 98
--- NOTE | 2018-09-15 12:38 | CP.PCM.CON ---
History of Present Illness - History of Present Illness History of Present Illness: PGY-1 Ann Sigala D.O. Surgery consult note for Dr. 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 He states that he was moving boxes out of his house and fell forward onto outstretched hands. He says that he sustained most of the fall with his left hand. He denies head injury or LOC. He has cuts to his left hand. He is unable to move his 4th and 5th digits on the left. He denies sensory loss/numbness. In the ED, patient received Tdap. His INR is 2.06. CT head and cervical spine are negative for acute pathology. Left hand XR shows 4th digit proximal phalanx fracture with mild dislocation and 5th digit PIP dislocation. PMH: unprovoked PE/DVTs, T2DM, HTN, HLD, gout, ?CKD, ?interstitial lung disease PSH: L carotid endartectomy, cholecystectomy Meds: warfarin 4mg, simvastatin 40mg, enalapril, ASA 81mg, glyburide-metformin 2.5-500mg, Flomax 0.4mg All: NKA FH: patient does not know SH: lives with , denies alcohol, tobacco, illicit drug use Review of Systems - Constitutional Constitutional: absent: Chills, Fever, Frequent Falls - EENT Eyes: absent: Change in Vision Ears: absent: Decreased Hearing Nose/Mouth/Throat: absent: Nasal Congestion - Cardiovascular Cardiovascular: absent: Chest Pain, Diaphoresis, Dyspnea, Palpitations - Respiratory Respiratory: absent: Cough, Dyspnea - Gastrointestinal Gastrointestinal: absent: Abdominal Pain, Constipation, Diarrhea, Nausea, Vomiting - Genitourinary Genitourinary: absent: Dysuria, Hematuria - Musculoskeletal Musculoskeletal: As Per HPI. absent: Back Pain, Numbness, Tingling - Integumentary Integumentary: As Per HPI, Wounds - Neurological Neurological: absent: Dizziness, Numbness, Sensory Deficit, Syncope, Tingling - Hematologic/Lymphatic Hematologic: Easy Bruising Past Patient History - Infectious Disease Hx of Infectious Diseases: None - Past Medical History & Family History Past Medical History?: Yes - Past Social History Smoking Status: Never Smoked Chewing Tobacco Use: No Cigar Use: No Alcohol: None Drugs: Denies Home Situation {Lives}: With Family () - CARDIAC Hx Congestive Heart Failure: Yes - PULMONARY Hx Respiratory Disorders: No - NEUROLOGICAL HX Cerebrovascular Accident: Yes - HEENT Hx HEENT Problems: (WEARS RX GLASSES) - RENAL Hx Chronic Kidney Disease: No - ENDOCRINE/METABOLIC Hx Diabetes Mellitus Type 2: Yes - HEMATOLOGICAL/ONCOLOGICAL Hx Blood Disorders: No - INTEGUMENTARY Hx Dermatological Problems: No - MUSCULOSKELETAL/RHEUMATOLOGICAL Hx Falls: No - GASTROINTESTINAL Hx Gastrointestinal Disorders: Yes Hx Gastroesophageal Reflux: Yes - GENITOURINARY/GYNECOLOGICAL Hx Reproductive Disorders: No - PSYCHIATRIC Hx Emotional Abuse: No Hx Physical Abuse: No Hx Substance Use: No - SURGICAL HISTORY Hx Cholecystectomy: Yes - ANESTHESIA Hx Anesthesia Reactions: No Hx Malignant Hyperthermia: No Meds Home Medications: Home Medication List Medication Instructions Recorded Confirmed Type Cephalexin [Keflex] 500 mg PO QID 7 Days #28 capsule 09/15/18 Rx Allergies/Adverse Reactions: Allergies Allergy/AdvReac Type Severity Reaction Status Date / Time No Known Allergies Allergy Verified 09/15/18 09:16 Physical Exam - Head Exam Head Exam: ATRAUMATIC, NORMAL INSPECTION - Eye Exam Eye Exam: EOMI, Normal appearance, PERRL - ENT Exam ENT Exam: Mucous Membranes Moist - Neck Exam Neck exam: Positive for: Normal Inspection - Respiratory Exam Respiratory Exam: Clear to Auscultation Bilateral, NORMAL BREATHING PATTERN. absent: Accessory Muscle Use, Respiratory Distress - Cardiovascular Exam Cardiovascular Exam: REGULAR RHYTHM, +S1, +S2 - GI/Abdominal Exam GI & Abdominal Exam: Soft. absent: Distended, Tenderness - Extremities Exam Extremities exam: Positive for: normal inspection. Negative for: pedal edema, tenderness Additional comments: L hand: 4th and 5th digits grossly deformed, opening with bone exposed on 5th digit, swelling, palpable pulses, dull and sharp sensation intact - Neurological Exam Neurological exam: Alert, CN II-XII Intact, Motor Sensory Deficit (L hand 4th and 5th digits 0/5 motor), Oriented x3 - Psychiatric Exam Psychiatric exam: Normal Affect, Normal Mood - Skin Skin Exam: Abrasion (see extrmities), Normal Color, Warm Results - Vital Signs Recent Vital Signs: Last Vital Signs Temp 98.1 F 09/15/18 09:11 Pulse 88 09/15/18 11:07 Resp 18 09/15/18 11:07 BP 147/88 09/15/18 11:07 Pulse Ox 98 09/15/18 11:07 - Labs Result Diagrams: 09/15/18 09:30 09/15/18 09:30 Labs: Laboratory Results - last 24 hr 09/15/18 09/15/18 09/15/18 09:30 09:30 09:30 WBC 5.9 RBC 3.70 Hgb 12.1 L Hct 37.4 L MCV 101.1 MCH 32.7 MCHC 32.4 RDW 15.0 H Plt Count 123 MPV 10.5 Gran % 57.9 Lymph % (Auto) 25.5 [place] % (Auto) 10.2 H Eos % (Auto) 5.9 H Baso % (Auto) 0.5 Gran # 3.42 Lymph # (Auto) 1.5 [place] # (Auto) 0.6 Eos # (Auto) 0.4 Baso # (Auto) 0.03 PT 24.1 H INR 2.06 APTT 31.3 Sodium 143 Chloride 110 H Carbon Dioxide 23 BUN 34 H Creatinine 1.9 H Est GFR ( Amer) 42 Est GFR (Non-Af Amer) 35 Random Glucose 107 Calcium 9.3 Total Bilirubin 0.9 AST 31 ALT 39 Alkaline Phosphatase 58 Total Protein 7.2 Albumin 4.3 Globulin 2.9 Albumin/Globulin Ratio 1.5 BBK History Checked 09/15/18 12:00 WBC RBC Hgb Hct MCV MCH MCHC RDW Plt Count MPV Gran % Lymph % (Auto) [place] % (Auto) Eos % (Auto) Baso % (Auto) Gran # Lymph # (Auto) [place] # (Auto) Eos # (Auto) Baso # (Auto) PT INR APTT Sodium Chloride Carbon Dioxide BUN Creatinine Est GFR ( Amer) Est GFR (Non-Af Amer) Random Glucose Calcium Total Bilirubin AST ALT Alkaline Phosphatase Total Protein Albumin Globulin Albumin/Globulin Ratio BBK History Checked Patient has bt Assessment & Plan - Assessment and Plan (Free Text) Assessment: 78M with L hand injury s/p mechanical fall Plan: - Bedside reduction - Volar splint to stay on and dry until outpatient follow-up - Analgesics PRN - 2 weeks of Augmentin - Follow up with Dr. Zaidi/hand surgeon on Tuesday - Follow up with primary care doctor for clearance and optimization for surgery - Will need to have surgery within 2 weeks time Case discussed with attending, Dr. Zaidi.
--- NOTE | 2018-09-15 12:53 | RAD ---
Date of service: 09/15/2018 HISTORY: preop COMPARISON: 03/11/2017 FINDINGS: LUNGS: No active pulmonary disease. PLEURA: No significant pleural effusion identified, no pneumothorax apparent. CARDIOVASCULAR: No aortic atherosclerotic calcification present. Normal cardiac size. No pulmonary vascular congestion. OSSEOUS STRUCTURES: No significant abnormalities. VISUALIZED UPPER ABDOMEN: Normal. OTHER FINDINGS: None. IMPRESSION: No active disease.
--- NOTE | 2018-09-15 13:43 | PCM.PROC ---
Procedures Attestation:: I certify that I have explained the specified Operation(s) or Procedure(s), risks, benefits and reasonable alternatives to the Patient and/or other person responsible. The opportunity was given to ask questions and all questions answered - Laceration lidocaine 1% involves muscle layer irregular wound margins revised left hand 4-0 other nerve block simple, interrupted [id number] Site: hand Side (if applicable): left Size (cm): 5 Description: irregular, clean Depth: simple, single layer Anesthesia used: bupivicaine, lidocaine 1% Anesthesia technique: nerve block Amount (mLs): 10 Pre-repair: wound explored, irrigated extensively, deep structures intact, wound margins revised Skin layer closed with: other (Prolene) Size: 4-0 Number of sutures: 7 Technique: simple, interrupted
--- NOTE | 2018-09-15 14:46 | RAD ---
PROCEDURE: Left Hand Radiographs. HISTORY: fall, deformity and laceration to 4th/5th digit COMPARISON: None. FINDINGS: BONES: There is a comminuted angulated fracture through the base of the 4th proximal phalanx. There is complete dislocation of the 5th PIP joint. JOINTS: Normal. No osteoarthritic changes. SOFT TISSUES: Normal. OTHER FINDINGS: None. IMPRESSION: There is a comminuted angulated fracture through the base of the 4th proximal phalanx. There is complete dislocation of the 5th PIP joint.
--- NOTE | 2018-09-15 14:59 | RAD ---
PROCEDURE: Left Hand Radiographs. HISTORY: s/p reduction COMPARISON: Earlier same day FINDINGS: BONES: There has been improvement in the alignment of the 4th digit. There is still dislocation of the 5th PIP joint JOINTS: As above SOFT TISSUES: Normal. OTHER FINDINGS: There is a plaster splint in place IMPRESSION: There has been improvement in the alignment of the 4th digit. There is still dislocation of the 5th PIP joint
--- NOTE | 2018-09-15 15:17 | CARD ---
APPROVED REPORT Date of service: 09/15/2018 EKG Measurement Heart [id number] <Conclusion> Normal Sinus Rythm. Small Q I,AVL Possible Old Anterior Wall [place]?
--- NOTE | 2018-09-15 15:19 | RAD ---
Date of service: 09/15/2018 PROCEDURE: Left hand multiple views HISTORY: post-reduction COMPARISON: Earlier same day TECHNIQUE: FINDINGS: IMPRESSION: There is persistent dislocation of the 5th PIP joint
[2018-09-15 17:43] VITALS: BP 132/79; PULSE 78; TEMP 98.3
--- NOTE | 2018-09-15 23:49 | CON ---
DATE: 09/15/2018 ORTHOPEDIC CONSULT HISTORY OF PRESENT ILLNESS: He is a 78-year-old male, right-hand dominant with a multiple lacerations, 3 of his left hand with fracture proximal phalanx of the fourth digit left hand and dislocated PIP joint with volar fracture. The patient lives with his , he did this early this morning, he has been in the ER since 9 a.m. and is presently 5 p.m. he had the lacerations sutured with nylon and I did a reduction of the PIP joint of the fifth digit left hand and did a closed reduction of proximal phalanx fourth digit with kaushik taping and digital palmar splints, we kept this fifth digit in flexion as well as the fourth digit and put him in a digital palmar splint and with Xeroform dressing, now seen him in the office in three days and see how he is doing. FINAL DIAGNOSIS: Fracture of proximal phalanx fourth digit and dorsal dislocation of the proximal interphalangeal joint of his fifth digit left hand and he is in a digital palmar splint that I applied. I am going to check him in three to four days and he is going to go on p.o. antibiotics. Micheal Michelle DO OLEG
== END 2018-09-15 17:43 | disposition home or self-care (01) ==
LOC: ED 09:06
DX: S62.615B Displaced fracture of proximal phalanx of left ring finger, initial encounter for open fracture (principal); S63.287A Dislocation of proximal interphalangeal joint of left little finger, initial encounter; W01.0XXA Fall on same level from slipping, tripping and stumbling without subsequent striking against object, initial encounter; Y92.89 Other specified places as the place of occurrence of the external cause; E11.9 Type 2 diabetes mellitus without complications; I50.9 Heart failure, unspecified; K21.9 Gastro-esophageal reflux disease without esophagitis; Z86.711 Personal history of pulmonary embolism; Z86.718 Personal history of other venous thrombosis and embolism; Z79.01 Long term (current) use of anticoagulants; Z23 Encounter for immunization